=== PATIENT | male | born 1960 | race Caucasian/White ===

== ENCOUNTER 2019-09-03 09:03 | Outpatient (CLI) | payer OTHER, SELFPAY ==
[2019-09-03 09:12] LABS: Basophils Absolute Auto 0.03 K/mm3 (0.00-0.10); Basophils Percent Auto 0.5 % (0.0-1.0); Eosinophils Absolute Auto 0.25 K/mm3 (0.02-0.50); Eosinophils Percent Auto 4.4 % (1.0-6.0); Hematocrit 43.2 % (40.0-54.0); Hemoglobin 14.4 g/dL (14.0-18.0); Immature Granulocyte Absolute 0.02 K/mm3 (0.00-0.00); Immature Granulocyte Percent A 0.4 % (0.0-0.0); Lymphocytes Absolute Auto 1.53 K/mm3 (1.10-4.50); Mean Corpuscular HGB Conc 33.3 g/dL (32.0-36.0); Mean Corpuscular Hemoglobin 30.5 pg (27.0-31.0); Mean Corpuscular Volume 91.5 fL (78.0-102.0); Mean Platelet Volume 9.8 fl (8.7-11.0); Monocytes Absolute Auto 0.57 K/mm3 (0.10-0.90); Monocytes Percent Auto 10.1 % (2.0-11.0); Neutrophils Absolute Auto 3.3 K/mm3 (1.7-7.2); Neutrophils Percent Auto 57.6 % (50.0-70.0); Platelet Count Result 176 K/mm3 (150-420); Red Blood Count 4.72 M/mm3 (4.70-6.10); Red Cell Distribution Width 13.2 % (11.6-14.4); White Blood Count 5.7 K/mm3 (4.8-10.8)
[2019-09-03 10:21] LABS: Alanine Aminotransferase 40 U/L (16-63); Albumin Level 3.7 g/dL (3.4-5.0); Alkaline Phosphatase 90 U/L (46-116); Anion Gap 10.1 mmol/L (7-16); Aspartate Amino Transferase 22 U/L (15-37); Bilirubin,Total 0.4 mg/dL (0.00-1.00); Blood Urea Nitrogen 9 mg/dL (7-18); Calcium 8.9 mg/dL (8.5-10.1); Carbon Dioxide 29 mmol/L (21-32); Chloride 102 mmol/L (98-108); Estimated Glomerular Filt Rate > 60; Free T3 8.07 pg/mL (2.18-3.98); Free T4 Free Thyroxine 0.91 ng/dL (0.76-1.46); Glucose 91 mg/dL (70-99); Osmolality Calculated 280 mOsm/kg (285-295); Potassium 5.1 mmol/L (3.5-5.1); Sodium 136 mmol/L (136-145); Total Protein 7.2 g/dL (6.4-8.2)
[2019-09-03 10:46] LABS: Thyroid Stimulating Hormone < 0.01 uIU/mL (0.36-3.74)
== END 2019-09-03 09:04 | disposition home or self-care (01) ==
PROVIDERS: PCP Internal Medicine; Visit Provider Internal Medicine
DX: E05.80 Other thyrotoxicosis without thyrotoxic crisis or storm (principal); I10 Essential (primary) hypertension
CPT/HCPCS: 36415; 80053; 84439; 84443; 84481; 85025

== ENCOUNTER 2019-09-24 07:39 | Outpatient (CLI) | payer OTHER, SELFPAY ==
--- NOTE | ~2019-09-24 | XR_ITS ---
XR ankle RT min 3V DATE: 09/24/2019 07:58 INDICATION: Lateral ankle pain TECHNIQUE: 4 views COMPARISON: 07/28/2018 right ankle FINDINGS: Again noted is severe osteoarthritis at the tibiotalar joint, particularly severe laterally . Stable benign appearing mildly expansile lesion with sclerotic margins at the distal tibial shaft. Plantar calcaneal enthesopathy. 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 IMPRESSION: Severe osteoarthritis at the tibiotalar joint, most pronounced late rally Plantar calcaneal enthesopathy Stable benign lesion of distal tibial shaft
== END 2019-09-24 07:40 | disposition home or self-care (01) ==
PROVIDERS: PCP Internal Medicine; Visit Provider Orthopaedic Surgery
DX: M25.571 Pain in right ankle and joints of right foot (principal)
CPT/HCPCS: 73610

== ENCOUNTER 2019-10-12 07:38 | Outpatient (CLI) | payer OTHER, SELFPAY ==
--- NOTE | 2019-10-15 16:21 | WPDSIXMINUTE ---
Six Minute Walk Six Minute Walk: DOS: 10/12/2019 REQUESTING: Dr Petit REASON FOR TESTING: SIX MINUTE WALK This test was conducted per ATS guidelines. The Patient was tested walking on room air. Initial heart rate was 54 saturation was 96%. Blood pressure 129/76. The patient walked for 6 minutes without stopping, completed 800 ft/ 244 m. Final saturation was 94%. Heart rate at the end of the test was 64. Saturation ranged from 97% to 92%. IMPRESSION: This test shows no travis hypoxemia. There is no indication for supplemental oxygen with exertion. Distance walked is less than expected for age.
== END 2019-10-12 07:39 | disposition home or self-care (01) ==
LOC: ANHPFT 07:39
PROVIDERS: PCP Internal Medicine; Visit Provider Internal Medicine Critical Care Medicine
DX: J44.9 Chronic obstructive pulmonary disease, unspecified (principal); R06.02 Shortness of breath
CPT/HCPCS: 94618

== ENCOUNTER 2020-07-15 12:29 | Outpatient (CLI) | payer OTHER, SELFPAY ==
--- NOTE | ~2020-07-15 | CT_ITS ---
EXAMINATION: CT lung screening DATE: 07/15/2020 12:45 INDICATION: History of tobacco dependence TECHNIQUE: Computed tomography (CT) of the chest was performed without intravenous contrast. The dose -length product was 121.90 mGy-cm. Automated exposure control and iterative reconstruction technique were employed. COMPARISON: CT dated 07/28/2018 FINDINGS: Stable 3 mm lingular nodule. Heart size is normal. Calcified mediastinal and hilar lymph no pranav, consistent with chronic granulomatous disease. There are calcified granulomas of the liver and s pleen. No significant pleural or pericardial effusion. Mild emphysema. There are a few calcified gran ulomas in the lung parenchyma. Stable 3 mm nodule right upper lobe, image 35. There are a few additio nal scattered nodules measuring 3 mm or less. There is a new subsolid 7 mm left upper lobe nodule, be st seen on coronal image 189. No endobronchial lesions. Mild thoracic spondylosis with accentuated ky phosis. IMPRESSION: 1. Lung-RADS category 3: Probably benign. Further evaluation is recommended with noncontrast low-dose chest CT in 6 months. Reviewed, dictated and finalized at location A. IMPRESSION: 1. Lung-RADS category 3: Probably benign. Further evaluation is recommended wit h noncontrast low-dose chest CT in 6 months.
== END 2020-07-15 12:30 | disposition home or self-care (01) ==
LOC: CHSIMG 12:30
PROVIDERS: PCP Internal Medicine; Visit Provider Nurse Practitioner Family
DX: Z12.2 Encounter for screening for malignant neoplasm of respiratory organs (principal); Z87.891 Personal history of nicotine dependence
CPT/HCPCS: 71271

== ENCOUNTER 2020-07-16 11:23 | Outpatient (CLI) | payer OTHER, SELFPAY ==
--- NOTE | ~2020-07-16 | US_ITS ---
EXAMINATION: US venous doppler [facility] DATE: 07/16/2020 12:03 INDICATION: Bilateral lower limb swelling TECHNIQUE: Pablo scale images without and with compression and Doppler images of the bilateral lower e xtremity veins were obtained. COMPARISON: None FINDINGS: The right common femoral vein, profunda femoral vein, femoral vein, popliteal vein, peroneal trunk, p osterior tibial veins, and greater saphenous vein are patent. The left common femoral vein, profunda femoral vein, femoral vein, popliteal vein, peroneal trunk, po sterior tibial veins, and greater saphenous vein are patent. IMPRESSION: 1. Patent bilateral lower extremity veins. No evidence of deep venous thrombosis. Reviewed, dictated and finalized at location A. IMPRESSION: 1. Patent bilateral lower extremity veins. No evidence of deep venous thrombosi s.
== END 2020-07-16 11:24 | disposition home or self-care (01) ==
LOC: ANHIMG 11:24
PROVIDERS: PCP Internal Medicine; Visit Provider Internal Medicine Cardiovascular Disease
DX: R60.9 Edema, unspecified (principal)
CPT/HCPCS: 93970

== ENCOUNTER 2020-07-23 09:39 | Outpatient (CLI) | payer OTHER, SELFPAY ==
[2020-07-23 09:52] LABS: Basophils Absolute Auto 0.04 K/mm3 (0.00-0.10); Basophils Percent Auto 0.5 % (0.0-1.0); Eosinophils Absolute Auto 0.16 K/mm3 (0.02-0.50); Hematocrit 45.6 % (40.0-54.0); Hemoglobin 15.6 g/dL (14.0-18.0); Immature Granulocyte Absolute 0.03 K/mm3 (0.00-0.00); Immature Granulocyte Percent A 0.4 % (0.0-0.0); Lymphocytes Absolute Auto 1.37 K/mm3 (1.10-4.50); Lymphocytes Percent Auto 17.4 % (18.0-42.0); Mean Corpuscular HGB Conc 34.2 g/dL (32.0-36.0); Mean Corpuscular Hemoglobin 33.1 pg (27.0-31.0); Mean Corpuscular Volume 96.6 fL (78.0-102.0); Monocytes Percent Auto 8.9 % (2.0-11.0); Neutrophils Absolute Auto 5.6 K/mm3 (1.7-7.2); Neutrophils Percent Auto 70.8 % (50.0-70.0); Platelet Count Result 152 K/mm3 (150-420); Red Blood Count 4.72 M/mm3 (4.70-6.10); Red Cell Distribution Width 13.2 % (11.6-14.4); White Blood Count 7.9 K/mm3 (4.8-10.8)
[2020-07-23 09:55] LABS: Add Urine Microscopic? YES; Appearance Urine Clear (Clear); Bilirubin Urine Negative (Negative); Blood Urine Negative (Negative); Color Urine Yellow (Yellow); Glucose Urine UA Negative (Negative); Ketones Urine Trace (Negative); Leukocyte Esterase Ur Negative (Negative); Nitrate Urine Negative (Negative); Protein Urine Negative (Negative); Urobilinogen Urine >=8.0 mg/dL (0.2-1.0)
[2020-07-23 10:21] LABS: Bacteria Urine 1+ /hpf; Mucus Urine Few /lpf; RBC Urine 0-2 /hpf (0-2); Squamous Epithelial Cell Urine Rare /hpf (Few); WBC Urine 0-3 /hpf (0-3)
[2020-07-23 11:27] LABS: Alanine Aminotransferase 30 U/L (16-63); Albumin Level 4.1 g/dL (3.4-5.0); Alkaline Phosphatase 79 U/L (46-116); Anion Gap 8 mmol/L (8-16); Aspartate Amino Transferase 18 U/L (15-37); Bilirubin,Total 0.8 mg/dL (0.00-1.00); Blood Urea Nitrogen 11 mg/dL (7-18); CRP 6.3 mg/dL (0.0-0.9); Calcium 9.3 mg/dL (8.5-10.1); Carbon Dioxide 30 mmol/L (21-32); Chloride 98 mmol/L (98-108); Estimated Glomerular Filt Rate > 60; Free T3 3.04 pg/mL (2.18-3.98); Free T4 Free Thyroxine 0.39 ng/dL (0.76-1.46); Glucose 97 mg/dL (70-99); NT Pro B Type Natriuretic Pept 223 pg/mL (0-125); Osmolality Calculated 281 mOsm/kg (285-295); Potassium 4.6 mmol/L (3.5-5.1); Sodium 136 mmol/L (136-145); Thyroid Stimulating Hormone 8.61 uIU/mL (0.36-3.74); Total Protein 7.8 g/dL (6.4-8.2)
== END 2020-07-23 09:40 | disposition home or self-care (01) ==
LOC: CHSLAB 09:41
PROVIDERS: PCP Internal Medicine; Visit Provider Internal Medicine
DX: E05.90 Thyrotoxicosis, unspecified without thyrotoxic crisis or storm (principal); R60.9 Edema, unspecified
CPT/HCPCS: 36415; 80053; 81001; 83880; 84439; 84443; 84481; 85025; 86140

== ENCOUNTER 2021-01-05 12:58 | Outpatient (CLI) | payer OTHER, SELFPAY ==
--- NOTE | ~2021-01-05 | CT_ITS ---
EXAMINATION:CT diagnostic chest wo con DATE: 01/05/2021 13:15 INDICATION: Solitary pulmonary nodule. TECHNIQUE: Computed tomography (CT) of the chest was performed without intravenous contrast. Automate d exposure control and iterative reconstruction technique were employed. The dose-length product (DLP ) was 152.21 mGy-cm. COMPARISON: Chest CT 07/15/2020 FINDINGS: There is mild emphysema. Calcified pulmonary nodules and calcified hilar and mediastinal ly mph nodes are consistent with old granulomatous disease. There are a few pulmonary nodules measuring up to 3 mm. There is a 7 mm nodule in left upper lobe without change. No pleural effusion. There are mildly enlarged noncalcified mediastinal lymph nodes, likely reactive. The heart size is normal. Ther e are coronary artery calcifications. No pericardial effusion. Calcifications in the liver and spleen are consistent with old granulomatous disease. There is mild thoracic spondylosis. There is mild chr onic height loss of multiple vertebral bodies. IMPRESSION: 1. Lung-RADS category 2: Benign appearance or behavior. Continue annual screening with noncontrast lo w-dose chest CT in 12 months. Reviewed, dictated and finalized at location A. 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 Lung-RADS category 2: Benign appearance or behavior. Continue annual screeni ng with noncontrast low-dose chest CT in 12 months.
== END 2021-01-05 12:59 | disposition home or self-care (01) ==
PROVIDERS: PCP Internal Medicine; Visit Provider Nurse Practitioner Family
DX: R91.1 Solitary pulmonary nodule (principal)
CPT/HCPCS: 71250

== ENCOUNTER 2021-01-16 09:11 | Outpatient (CLI) | payer OTHER, SELFPAY ==
[2021-01-16 09:26] LABS: Basophils Absolute Auto 0.06 K/mm3 (0.00-0.10); Basophils Percent Auto 1.3 % (0.0-1.0); Eosinophils Absolute Auto 0.22 K/mm3 (0.02-0.50); Eosinophils Percent Auto 4.7 % (1.0-6.0); Hematocrit 45.8 % (40.0-54.0); Hemoglobin 15.7 g/dL (14.0-18.0); Immature Granulocyte Absolute 0.02 K/mm3 (0.00-0.00); Immature Granulocyte Percent A 0.4 % (0.0-0.0); Lymphocytes Absolute Auto 1.27 K/mm3 (1.10-4.50); Lymphocytes Percent Auto 27.1 % (18.0-42.0); Mean Corpuscular HGB Conc 34.3 g/dL (32.0-36.0); Mean Corpuscular Hemoglobin 34.5 pg (27.0-31.0); Mean Corpuscular Volume 100.7 fL (78.0-102.0); Mean Platelet Volume 9.6 fl (8.7-11.0); Monocytes Absolute Auto 0.45 K/mm3 (0.10-0.90); Monocytes Percent Auto 9.6 % (2.0-11.0); Neutrophils Absolute Auto 2.7 K/mm3 (1.7-7.2); Neutrophils Percent Auto 56.9 % (50.0-70.0); Platelet Count Result 171 K/mm3 (150-420); Red Blood Count 4.55 M/mm3 (4.70-6.10); Red Cell Distribution Width 13.2 % (11.6-14.4); White Blood Count 4.7 K/mm3 (4.8-10.8)
[2021-01-16 09:30] LABS: Add Urine Microscopic? NO; Appearance Urine Clear (Clear); Bilirubin Urine Negative (Negative); Blood Urine Negative (Negative); Color Urine Yellow (Yellow); Glucose Urine UA Negative (Negative); Ketones Urine Negative (Negative); Leukocyte Esterase Ur Negative (Negative); Nitrate Urine Negative (Negative); Protein Urine Negative (Negative); Specific Grav Ur >= 1.030 (1.010-1.020); Urobilinogen Urine 0.2 mg/dL (0.2-1.0)
[2021-01-16 10:20] LABS: Alanine Aminotransferase 47 U/L (16-63); Albumin Level 3.8 g/dL (3.4-5.0); Alkaline Phosphatase 67 U/L (46-116); Anion Gap 7 mmol/L (8-16); Aspartate Amino Transferase 18 U/L (15-37); Bilirubin,Total 0.3 mg/dL (0.00-1.00); Blood Urea Nitrogen 9 mg/dL (7-18); Carbon Dioxide 31 mmol/L (21-32); Chloride 99 mmol/L (98-108); Cholesterol 155 mg/dL (0-200); Estimated Glomerular Filt Rate > 60; Free T3 2.88 pg/mL (2.18-3.98); Free T4 Free Thyroxine 0.34 ng/dL (0.76-1.46); Glucose 72 mg/dL (70-99); HDL Direct 74 mg/dL (40-60); LDL Cholesterol Calculated 71 mg/dL (<130); Osmolality Calculated 281 mOsm/kg (285-295); Potassium 4.7 mmol/L (3.5-5.1); Prostate Specific Antigen 1.5 ng/mL (< OR = 4.0); Sodium 137 mmol/L (136-145); Thyroid Stimulating Hormone 5.44 uIU/mL (0.36-3.74); Total Protein 7.1 g/dL (6.4-8.2); Triglycerides 51 mg/dL (0-150)
== END 2021-01-16 09:12 | disposition home or self-care (01) ==
LOC: CHSLAB 09:16
PROVIDERS: Internal Medicine Cardiovascular Disease; Nurse Practitioner Family; PCP Internal Medicine; Visit Provider Internal Medicine
DX: E05.90 Thyrotoxicosis, unspecified without thyrotoxic crisis or storm (principal); I10 Essential (primary) hypertension; Z12.5 Encounter for screening for malignant neoplasm of prostate; Z00.00 Encounter for general adult medical examination without abnormal findings
CPT/HCPCS: 36415; 80053; 80061; 81003; 82104; 84153; 84439; 84443; 84481; 85025; G0103

== ENCOUNTER 2021-05-04 13:10 | Outpatient (CLI) | payer OTHER, SELFPAY ==
[2021-05-04 14:11] LABS: Free T4 Free Thyroxine 0.27 ng/dL (0.76-1.46); Thyroid Stimulating Hormone 10.68 uIU/mL (0.36-3.74)
== END 2021-05-04 13:11 | disposition home or self-care (01) ==
LOC: CHSLAB 13:11
PROVIDERS: PCP Internal Medicine; Visit Provider Internal Medicine
DX: E05.80 Other thyrotoxicosis without thyrotoxic crisis or storm (principal)
CPT/HCPCS: 36415; 84439; 84443; 84481

== ENCOUNTER 2021-07-18 07:49 | Outpatient (CLI) | payer OTHER, SELFPAY ==
--- NOTE | 2021-07-18 07:50 | ECG_ITS ---
Measurements Intervals [place] Rate: 44 P: 65 AK: 141 QRS: 61 QRSD: 92 T: 68 QT: 448 QTc: 386 Interpretive Statements SINUS BRADYCARDIA POSSIBLE LEFT ATRIAL ENLARGEMENT PEAKED T WAVES- CONSIDER HYPERKALEMIA OR ISCHEMIA ABNORMAL ECG Electronically Signed On 07-18-2021 16:08:15 CDT by Vamshi Harris D.O.
== END 2021-07-18 07:50 | disposition home or self-care (01) ==
LOC: CHSCARD 07:50
PROVIDERS: PCP Internal Medicine; Visit Provider Internal Medicine Cardiovascular Disease
DX: I48.92 Unspecified atrial flutter (principal)
CPT/HCPCS: 93005

== ENCOUNTER 2021-07-25 09:09 | Outpatient (CLI) | payer OTHER, SELFPAY ==
[2021-07-25 09:36] LABS: Anion Gap 9 mmol/L (8-16); Blood Urea Nitrogen 13 mg/dL (7-18); Calcium 8.9 mg/dL (8.5-10.1); Carbon Dioxide 28 mmol/L (21-32); Chloride 99 mmol/L (98-108); Estimated Glomerular Filt Rate > 60; Glucose 93 mg/dL (70-99); Osmolality Calculated 282 mOsm/kg (285-295); Potassium 4.3 mmol/L (3.5-5.1); Sodium 136 mmol/L (136-145)
[2021-07-27 09:30] LABS: Thyroid Stimulating Hormone 0.86 uIU/mL (0.36-3.74)
== END 2021-07-25 09:10 | disposition home or self-care (01) ==
LOC: CHSLAB 09:11
PROVIDERS: PCP Internal Medicine; Visit Provider Internal Medicine Cardiovascular Disease
DX: I48.92 Unspecified atrial flutter (principal); R53.83 Other fatigue
CPT/HCPCS: 36415; 80048; 84443

== ENCOUNTER 2021-07-28 10:29 | Emergency (ER) | payer OTHER, SELFPAY ==
[2021-07-28] VITALS (25 sets, daily range): BP systolic 116–134; BP diastolic 60–103; PULSE 52–64; RESP 9–35; TEMP 37.1; O2SAT 90–100
--- NOTE | ~2021-07-28 | XR_ITS ---
EXAMINATION: XR chest 2V 07/28/2021 11:06 INDICATION: Shortness of breath and chest pain PROCEDURE: 2 view chest COMPARISON: 10/27/2018 FINDINGS: The lungs are clear. The cardiomediastinal silhouette is within normal limits. There are no pleural effusions. There is no pneumothorax suspected. There are calcified mediastinal and hilar lymph nodes, consistent with chronic granulomatous disease. IMPRESSION: 1: NO ACUTE CARDIOPULMONARY DISEASE. Reviewed, dictated and finalized at location B.
--- NOTE | 2021-07-28 10:32 | ECG_ITS ---
Measurements Intervals [place] Rate: 61 P: 32 IA: 150 QRS: 73 QRSD: 86 T: 76 QT: 390 QTc: 394 Interpretive Statements SINUS RHYTHM RIGHT VENTRICULAR CONDUCTION DELAY EARLY REPOLARIZATION TALL T-WAVES, CONSIDER HYPERKALEMIA Electronically Signed On 07-28-2021 11:18:03 CDT by Shaw Hoover M.D.
[2021-07-28 10:52] LABS: Basophils Absolute Auto 0.1 K/mm3 (0.0-0.1); Basophils Percent Auto 0.6 % (0.2-1.2); Eosinophils Absolute Auto 0.2 K/mm3 (0-0.3); Hematocrit 44.9 % (42.0-52.0); Hemoglobin 14.9 g/dL (14.0-18.0); Immature Granulocyte Absolute 0.03 K/mm3 (0.00-0.031); Immature Granulocyte Percent A 0.3 % (0-0.5); Lymphocytes Absolute Auto 1.35 K/mm3 (0.9-3.2); Lymphocytes Percent Auto 14.5 % (18.3-44.2); Mean Corpuscular HGB Conc 33.2 g/dl (32-36); Mean Corpuscular Hemoglobin 33.6 pg (26-34); Mean Corpuscular Volume 101.4 fl (80-100); Mean Platelet Volume 9.7 fl (7.4-10.4); Monocytes Absolute Auto 1.1 K/mm3 (0.1-0.6); Monocytes Percent Auto 11.6 % (2.6-8.5); Neutrophils Absolute Auto 6.6 K/mm3 (1.3-6.7); Platelet Count Result 203 k/mm3 (150-375); Red Blood Count 4.43 M/mm3 (4.6-6.20); Red Cell Distribution Width 12.9 % (11.5-14.5); White Blood Count 9.3 K/mm3 (4.5-10.0)
[2021-07-28 11:01] LABS: Alanine Aminotransferase 13 U/L (6-50); Albumin Level 4.1 g/dL (3.5-5.1); Alkaline Phosphatase 74 U/L (38-126); Anion Gap 3 mmol/L (8-16); Aspartate Amino Transferase 17 U/L (17-59); Bilirubin,Total 0.5 mg/dL (0.2-1.3); Blood Urea Nitrogen 10 mg/dL (9-20); Carbon Dioxide 35 mmol/L (22-30); Chloride 96 mmol/L (98-107); Estimated Glomerular Filt Rate > 60; Glucose 122 mg/dL (65-110); Lipase 86 U/L (23-300); Potassium 4.5 mmol/L (3.4-5.0); Sodium 134 mmol/L (137-145)
[2021-07-28 11:13] LABS: Troponin I < 0.012 ng/mL (0.000-0.034)
--- NOTE | 2021-07-28 11:21 | ED.GENADULT ---
HPI - General Adult General Chief complaint: Chest Pain Stated complaint: cp Time Seen by Provider: 07/28/21 10:39 History of Present Illness HPI narrative: 61-year-old male with history of proximal small atrial fibrillation and COPD presenting the emergency department for evaluation of left-sided chest pain that is worsened with deep inspiration. Patient states over the last few weeks he has had worsening exertional shortness of breath. Patient has since had follow-up with cardiology. Patient states today that he did have acute onset of sharp left-sided chest pain. Sharp chest pain is worsened with inspiration. Pain is also worsened with movement. Patient denied any exertional chest pain. Patient is still a smoker. Patient states he does follow-up with Dr. Harris and Dr Petit. Related Data Home Medications Medication Instructions Recorded Confirmed aspirin 325 mg tablet,delayed 325 mg PO DAILY 01/05/19 07/13/21 release montelukast 10 mg tablet 10 mg PO DAILY 01/05/19 07/13/21 propylthiouracil 50 mg tablet 50 mg RECTAL BID 05/29/21 07/13/21 Allergies Allergy/AdvReac Type Severity Reaction Status Date / Time No Known Allergies Allergy Verified 07/28/21 11:10 Review of Systems Review of Systems: CONSTITUTIONAL: Denies fever, chills, or sweats. EYES: Denies visual changes, redness, or discharge. ENT: Denies rhinorrhea, congestion, sore throat, or otalgia. CARDIOVASCULAR: See HPI RESPIRATORY: Worsening wheezing and shortness of breath GASTROINTESTINAL: Denies abdominal pain, nausea, vomiting, or diarrhea. GENITOURINARY: Denies dysuria or hematuria. SKIN: Denies rash or itching. MUSCULOSKELETAL: Denies back pain, joint pain, or myalgia. NEUROLOGIC: Denies headache, numbness, or weakness. PSYCHIATRIC: Denies anxiety or depression. [facility] Past Medical History Medical History Arthritis of wrist, right, degenerative Bradycardia Chronic obstructive pulmonary disease Cough Dizziness KELLEY (dyspnea on exertion) Fatigue Hyperthyroidism Paroxysmal atrial flutter Pulmonary nodules Restless sleeper Rhinitis Seasonal allergies Severe tricuspid regurgitation Skin cancer SOB (shortness of breath) on exertion Swollen ankles Traumatic arthritis of right ankle Wheezing Surgical History Surgical History H/O hernia repair Family History Family History Father Family history of rheumatoid arthritis Family history of emphysema Family history of thoracic aortic aneurysm Mother Family history of osteoarthritis Family history of malignant neoplasm of ovary Social History Social History Smoking packs per day: 2 Smoking cigarettes per day: 40.0 Years smoked: 50 Smoking pack-years: 100.00 Smoking status: Current every day smoker Tobacco type: cigarettes Second hand tobacco smoke exposure: Yes Alcohol intake: current Drinks per week: 35 Alcohol use details: Frequent Exam Narrative: APPEARANCE: Well appearing, no pain, no distress, well-nourished. HEAD: normocephalic, atraumatic. EYES: PERRLA/EOMI, conjunctivae clear. NOSE: Normal no drainage THROAT: Pharynx clear, no exudate. NECK: Supple. No adenopathy, no masses. RESPIRATORY: Airway patent, expiratory wheeze CARDIOVASCULAR: Sinus bradycardia ABDOMINAL: Soft, nontender, nondistended, normal bowel sounds MUSCULOSKELETAL: Moves all extremities. Strength/ROM intact, No edema, No calf tenderness. NEURO: Alert. Cranial nerves II through XII intact. Good gait. Good coordination SKIN: Warm, dry. Normal Color Course Course Emergency Course: Patient had negative serial troponins. X-ray showed no acute cardiopulmonary normality. Patient's wheeze was improved with breathing treatments in the ED. Patient states he h
[2021-07-28] MEDS: IPRATROPIUM BR 0.02% INH SOLN 0.5 MG/2.5 ML VIAL 2 MG INHALATION (11:27)
[2021-07-28] MEDS: ALBUTEROL SULFATE NEB 2.5 MG/3 ML INH 5 MG INHALATION (11:27)
[2021-07-28] MEDS: predniSONE 40 MG, predniSONE 10 MG 50 MG PO (11:29)
[2021-07-28 11:33] LABS: INR 0.9; Partial Thromboplastin Time 29.9 SECONDS (22.3-36.8); Prothrombin Time 12.1 Seconds (11.1-14.7)
[2021-07-28 14:04] LABS: Troponin I < 0.012 ng/mL (0.000-0.034)
== END 2021-07-28 14:37 | disposition home or self-care (01) ==
PROVIDERS: Emergency Provider Emergency Medicine; PCP Internal Medicine
DX: R07.1 Chest pain on breathing (principal); I48.0 Paroxysmal atrial fibrillation; J44.9 Chronic obstructive pulmonary disease, unspecified; E05.90 Thyrotoxicosis, unspecified without thyrotoxic crisis or storm; Z85.828 Personal history of other malignant neoplasm of skin; I07.1 Rheumatic tricuspid insufficiency; F17.210 Nicotine dependence, cigarettes, uncomplicated; I45.9 Conduction disorder, unspecified; R94.31 Abnormal electrocardiogram [ECG] [EKG]
CPT/HCPCS: 36415; 71046; 80053; 83690; 84484; 85025; 85610; 85730; 93005; 94640; 99284; J7512

== ENCOUNTER 2021-09-23 09:28 | Outpatient (CLI) | payer OTHER, SELFPAY ==
[2021-09-23 09:42] LABS: Basophils Absolute Auto 0.08 K/mm3 (0.00-0.10); Eosinophils Absolute Auto 0.18 K/mm3 (0.02-0.50); Eosinophils Percent Auto 2.2 % (1.0-6.0); Hematocrit 47.7 % (40.0-54.0); Immature Granulocyte Absolute 0.02 K/mm3 (0.00-0.00); Immature Granulocyte Percent A 0.2 % (0.0-0.0); Lymphocytes Absolute Auto 1.35 K/mm3 (1.10-4.50); Lymphocytes Percent Auto 16.4 % (18.0-42.0); Mean Corpuscular HGB Conc 33.5 g/dL (32.0-36.0); Mean Corpuscular Hemoglobin 33.5 pg (27.0-31.0); Mean Corpuscular Volume 99.8 fL (78.0-102.0); Mean Platelet Volume 9.7 fl (8.7-11.0); Monocytes Absolute Auto 0.73 K/mm3 (0.10-0.90); Monocytes Percent Auto 8.9 % (2.0-11.0); Neutrophils Absolute Auto 5.9 K/mm3 (1.7-7.2); Neutrophils Percent Auto 71.3 % (50.0-70.0); Platelet Count Result 194 K/mm3 (150-420); Red Blood Count 4.78 M/mm3 (4.70-6.10); Red Cell Distribution Width 13.1 % (11.6-14.4); White Blood Count 8.2 K/mm3 (4.8-10.8)
--- NOTE | 2021-09-23 09:43 | ECG_ITS ---
Measurements Intervals [place] Rate: 50 P: 46 TX: 147 QRS: 60 QRSD: 90 T: 67 QT: 424 QTc: 389 Interpretive Statements SINUS BRADYCARDIA TALL T-WAVES, SUGGESTS HYPERKALEMIA ABNORMAL ECG COMPARED TO ECG 07/28/2021 10:38:20 HEART RATE HAS DECREASED Electronically Signed On 09-23-2021 12:16:25 CDT by Zain Emery M.D.
[2021-09-23 10:23] LABS: Alanine Aminotransferase 27 U/L (16-63); Albumin Level 3.9 g/dL (3.4-5.0); Alkaline Phosphatase 90 U/L (46-116); Anion Gap 10 mmol/L (8-16); Aspartate Amino Transferase 18 U/L (15-37); Bilirubin,Total 0.5 mg/dL (0.00-1.00); Blood Urea Nitrogen 13 mg/dL (7-18); Calcium 9.3 mg/dL (8.5-10.1); Carbon Dioxide 29 mmol/L (21-32); Chloride 96 mmol/L (98-108); Estimated Glomerular Filt Rate > 60; Free T4 Free Thyroxine 0.62 ng/dL (0.76-1.46); Glucose 109 mg/dL (70-99); Magnesium 1.9 mg/dL (1.8-2.4); NT Pro B Type Natriuretic Pept 100 pg/mL (0-125); Osmolality Calculated 281 mOsm/kg (285-295); Potassium 4.7 mmol/L (3.5-5.1); Sodium 135 mmol/L (136-145); Thyroid Stimulating Hormone 1.91 uIU/mL (0.36-3.74); Total Protein 7.7 g/dL (6.4-8.2)
== END 2021-09-23 09:29 | disposition home or self-care (01) ==
LOC: CHSLAB 09:31
PROVIDERS: PCP Internal Medicine; Visit Provider Nurse Practitioner Family
DX: E03.9 Hypothyroidism, unspecified (principal); I10 Essential (primary) hypertension; J44.9 Chronic obstructive pulmonary disease, unspecified; I50.9 Heart failure, unspecified; I48.92 Unspecified atrial flutter; M25.473 Effusion, unspecified ankle
CPT/HCPCS: 36415; 80053; 83735; 83880; 84439; 84443; 85025; 93005

== ENCOUNTER 2021-10-06 08:57 | Outpatient (CLI) | payer OTHER, SELFPAY ==
--- NOTE | ~2021-10-06 | XR_ITS ---
EXAMINATION: XR ankle LT min 3V DATE: 10/06/2021 09:38 INDICATION: Left ankle pain TECHNIQUE: Anteroposterior, lateral, mortise, and additional oblique view of the ankle were obtained. COMPARISON: None. FINDINGS: Bone alignment is normal. There is mild osteoarthritis of the ankle. No fracture is identif ied. The soft tissues are unremarkable. There is a plantar calcaneal enthesophyte. IMPRESSION: 1. Mild osteoarthritis of the left ankle. Reviewed, dictated and finalized at location A.
--- NOTE | ~2021-10-06 | XR_ITS ---
EXAMINATION: XR ankle RT min 3V INDICATION: Right ankle TECHNIQUE: Four views of the right ankle are obtained. COMPARISON: 09/24/2019 FINDINGS: There is advanced osteoarthritis of the ankle. No fracture is identified. There is a stable , chronic nonaggressive lytic lesion with sclerotic margin in the lateral metadiaphysis of the distal tibia with bone expansion, likely benign given the lack of interval change. A plantar calcaneal enth esophyte is noted. There is mild soft tissue swelling of ankle. IMPRESSION: 1. Advanced osteoarthritis of the right ankle and soft tissue swelling without acute osseous abnormal ity or significant interval change. Reviewed, dictated and finalized at location A. IMPRESSION: 1. Advanced osteoarthritis of the right ankle and soft tissue swelling without acute osseous abnormality or significant interval change.
== END 2021-10-06 08:58 | disposition home or self-care (01) ==
LOC: CHSIMG 08:59
PROVIDERS: PCP Internal Medicine; Visit Provider Internal Medicine
DX: M25.572 Pain in left ankle and joints of left foot (principal); M25.571 Pain in right ankle and joints of right foot; M25.472 Effusion, left ankle; M25.471 Effusion, right ankle; M19.072 Primary osteoarthritis, left ankle and foot; M19.071 Primary osteoarthritis, right ankle and foot
CPT/HCPCS: 73610

== ENCOUNTER 2022-04-24 08:53 | Outpatient (CLI) | payer OTHER, SELFPAY ==
--- NOTE | ~2022-04-24 | XR_ITS ---
EXAMINATION: XR chest 2V DATE: 04/24/2022 09:12 INDICATION: Shortness of breath TECHNIQUE: PA and lateral views of the chest are obtained. COMPARISON: 07/28/2021 FINDINGS: The lungs are free of acute opacities. No pleural effusion or pneumothorax. The cardiomedia stinal silhouette is normal. There is mild thoracic spondylosis. Calcified pulmonary nodules and calc ified bilateral hilar and right paratracheal lymph nodes are consistent with old granulomatous diseas e. IMPRESSION: 1. No acute cardiopulmonary abnormality. Reviewed, dictated and finalized at location F. 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
[2022-04-24 09:08] LABS: Basophils Percent Auto 1.1 % (0.0-1.0); Eosinophils Absolute Auto 0.26 K/mm3 (0.02-0.50); Eosinophils Percent Auto 2.9 % (1.0-6.0); Hemoglobin 14.9 g/dL (14.0-18.0); Immature Granulocyte Absolute 0.09 K/mm3 (0.00-0.00); Lymphocytes Absolute Auto 1.46 K/mm3 (1.10-4.50); Lymphocytes Percent Auto 16.2 % (18.0-42.0); Mean Corpuscular HGB Conc 32.4 g/dL (32.0-36.0); Mean Corpuscular Hemoglobin 32.5 pg (27.0-31.0); Mean Corpuscular Volume 100.2 fL (78.0-102.0); Monocytes Absolute Auto 0.78 K/mm3 (0.10-0.90); Monocytes Percent Auto 8.7 % (2.0-11.0); Neutrophils Absolute Auto 6.3 K/mm3 (1.7-7.2); Neutrophils Percent Auto 70.1 % (50.0-70.0); Platelet Count Result 312 K/mm3 (150-420); Red Blood Count 4.59 M/mm3 (4.70-6.10); Red Cell Distribution Width 12.6 % (11.6-14.4)
[2022-04-24 10:01] LABS: Alanine Aminotransferase 22 U/L (16-63); Albumin Level 3.2 g/dL (3.4-5.0); Alkaline Phosphatase 83 U/L (46-116); Anion Gap 8 mmol/L (8-16); Aspartate Amino Transferase 17 U/L (15-37); Bilirubin,Total 0.2 mg/dL (0.00-1.00); Blood Urea Nitrogen 13 mg/dL (7-18); Calcium 9.3 mg/dL (8.5-10.1); Carbon Dioxide 34 mmol/L (21-32); Chloride 96 mmol/L (98-108); Estimated Glomerular Filt Rate > 60; Free T3 3.14 pg/mL (2.18-3.98); Free T4 Free Thyroxine 0.74 ng/dL (0.76-1.46); Glucose 84 mg/dL (70-99); Osmolality Calculated 285 mOsm/kg (285-295); Potassium 4.7 mmol/L (3.5-5.1); Sodium 138 mmol/L (136-145); Thyroid Stimulating Hormone 1.16 uIU/mL (0.36-3.74); Total Protein 7.6 g/dL (6.4-8.2)
[2022-04-27 11:27] LABS: ANA Cascade Screen Negative (Negative)
== END 2022-04-24 08:54 | disposition home or self-care (01) ==
LOC: CHSIMG 08:54
PROVIDERS: PCP Internal Medicine; Visit Provider Nurse Practitioner Family
DX: M25.50 Pain in unspecified joint (principal); J44.9 Chronic obstructive pulmonary disease, unspecified; R06.02 Shortness of breath; E03.9 Hypothyroidism, unspecified
CPT/HCPCS: 36415; 71046; 80053; 84439; 84443; 84481; 85025; 86038

== ENCOUNTER 2022-04-29 10:32 | Outpatient (CLI) | payer OTHER, SELFPAY ==
--- NOTE | ~2022-04-29 | CT_ITS ---
CT Scan of the Chest without Contrast: Clinical Indication: Lung cancer screening, smoking history Technique: Contiguous sections were acquired throughout the chest without intravenous contrast. Dose reduction technique was used on this scan by utilizing automated exposure control and iterative recon struction technique. The dose-length product (DLP) was 139.02 mGy-cm. COMPARISON: 01/05/2021 and 07/15/2020 Findings: There is no evidence of any significant mediastinal, hilar or axillary lymphadenopathy. Calcified med iastinal and bilateral hilar lymph nodes are present. Coronary artery calcium patient are present. There is no evidence of pleural or pericardial effusion. 1.2 cm irregular left apical pulmonary nodule is significantly increased in size from prior exam (axi al image 23). There are additional small somewhat branching opacities in the peripheral aspect of the right upper and left upper lobes. Several calcified granulomas are noted. Images through the upper abdomen reveal calcified hepatic and splenic granulomas. Impression: 1.2 cm irregular left apical pulmonary nodule, significantly increased in size from prior exam. This is consistent with a lung RADS 4B lesion. Additional diagnostic testing and/or tissue sampling is rec ommended. Several additional somewhat branching opacities in the peripheral upper lobes. Findings a small impac claudia airways or small airways infectious process rather than neoplastic lesions. Short-term follow-up exam should be considered to reassess, in 1-3 months. Evidence of No disc disease. Reviewed, dictated and finalized at [facility]. 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 This is consistent with a lung RADS 4B lesion. Additional diag nostic testing and/or tissue sampling is recommended. Several additional somewhat branching opacities in the peripheral upper lobes. Findings a small impacted airways or small airways infectious process rather th an neoplastic lesions. Short-term follow-up exam should be considered to reasse ss, in 1-3 months. Evidence of No disc disease.
[2022-04-29 10:35] VITALS: PULSE 64; O2SAT 95
[2022-04-29 10:45] VITALS: PULSE 62; O2SAT 92
--- NOTE | 2022-04-29 12:54 | HOMEO2EVAL ---
Evaluation was performed at [facility] [place] Home Oxygen Evaluation RC: Home Oxygen (O2) Evaluation Start: 04/29/22 12:49 Freq: Status: Active Protocol: RPE Activity Type Activity Date Activity User E-sign Co-sign Detail Recorded Client Recorded Date Recorded By Document 04/29/22 10:35 [id number] 04/29/22 12:54 Document 04/29/22 10:45 [id number] 04/29/22 12:54 04/29/22 04/29/22 10:35 10:45 Home O2 Evaluation [Oxygen] -Test Phase Resting Exercise -Oxygen Delivery Room Air [Pulse Oximetry] -Pulse Oximetry (90-100 %) 95 92 [Pulse Rate] -Pulse Rate (60-100 beats/min) 64 62 [Evaluation] -Activity Tolerance Good Good -Rating of Perceived Dyspnea (PD) +1 Mild, +1 Mild, Noticeable to Noticeable to the Participant the Participant but Not to an but Not to an Observer Observer -Rate of Perceived Exertion (PE) 7 7 Query Text:Click the Protocol Button to View the RPE Scale [Exercise] -Ambulation Distance (feet) 295 -Ambulation Distance (meters) 89.91 [Comments] -Home Oxygen Evaluation Comments will begin walk ended walk on on room air @ room air @ 92% 95% heart rate 64, no difficulty noted. Tolerated well. [Charges] -Treatment Charges O2 Evaluation - Outpatient
== END 2022-04-29 10:33 | disposition home or self-care (01) ==
LOC: CHSCARD 10:35
PROVIDERS: PCP Internal Medicine; Visit Provider Nurse Practitioner Family
DX: R06.02 Shortness of breath (principal); Z87.891 Personal history of nicotine dependence; J44.9 Chronic obstructive pulmonary disease, unspecified; R91.1 Solitary pulmonary nodule
CPT/HCPCS: 71271; 94618

== ENCOUNTER 2022-05-13 09:12 | Outpatient (CLI) | payer OTHER, SELFPAY ==
--- NOTE | ~2022-05-13 | PE_ITS ---
EXAMINATION: PET skull to mid thigh DATE: 05/13/2022 11:10 INDICATION: Solitary pulmonary nodule TECHNIQUE: Blood glucose level was 106 mg/dL. 10.984 mCi of 18-fluorodeoxyglucose (18-FDG) was admini stered i.v. Low dose computed tomography (CT) images were acquired from the base of the brain to the proximal thighs for attenuation correction and anatomic localization. Positron emission tomography (P ET) images were acquired in the same distribution beginning 62 minutes after injection. Images includ ing fused PET/CT images were reconstructed in axial, coronal, and sagittal planes. Automated exposure control technique was employed. The dose-length product was 571.69mGy-cm. COMPARISON: Chest CT dated 04/29/2022 FINDINGS: Head/neck: There is symmetric increased activity in the oral cavity, parotid glands, submandibular glands, dina ngeal muscles and ocular muscles without CT correlate, likely physiologic. No pathologically enlarged cervical lymphadenopathy or suspicious foci of increased FDG uptake in the visualized head or neck. Chest: Moderate increased FDG uptake with maximal SUV of 9.1 associated with the enlarging 1.6 x 1.2 spicula claudia left apical nodule. Calcified right upper lobe nodule and calcified mediastinal and bilateral hil ar lymph nodes consistent with old granulomatous disease. Mild FDG activity with maximal SUV of 2.8/w ith a new small region of consolidation and groundglass opacity in the left lower lobe at the postero lateral costophrenic angle which could represent pneumonia or atelectasis. No other suspicious pulmon michelle nodules or pleural effusion. Heart size is normal. Atherosclerotic coronary artery calcific locat ion. No pericardial effusion. Ectatic ascending thoracic aorta measuring up to 4.1 cm in maximal diam eter. No pathologically enlarged or FDG avid thoracic lymphadenopathy. Diffuse mild uptake in the rig ht teres minor muscle and relatively symmetric throughout the bilateral pectoralis minor, sternocleid omastoid and levator scapulae muscles, all without radiologic correlate and likely physiologic. Mild likely degenerative uptake at the left sacroiliac joint with associated osteoarthritis. No other susp icious lytic, blastic or FDG avid bone lesions. Abdomen/pelvis/proximal thighs: Physiologic renal accumulation and excretion of FDG activity in the kidneys, bladder and along portio ns of ureters. There are scattered hepatic and splenic calcific lesions consistent with old granuloma tous disease. Normal degree and heterogenous pattern of increased uptake throughout the liver without radiologic correlate or dominant FDG avid lesion. The gallbladder, pancreas and bilateral adrenal gl ands are normal. Mild uptake scattered throughout the bowels without radiologic correlate, also likel y physiologic. Normal appendix. No other abnormal foci of increased FDG uptake or pathologically enla rged lymphadenopathy in the abdomen, pelvis or proximal thighs. Severe lumbosacral spondylosis. No marcelo spicious lytic, blastic or FDG avid bone lesions. IMPRESSION: 1. Increased uptake associated with enlarging 1.6 x 1.2 cm left upper lobe nodule concerning for prim michelle bronchogenic carcinoma. Recommend CT-guided percutaneous biopsy. 2. No lesion suspicious for metastatic disease. 3. New small region of consolidation in the lateral basilar left lower lobe which could represent ate lectasis or pneumonia. Reviewed, dictated and finalized at location A. IMPRESSION: 1. Increased uptake associated with enlarging 1.6 x 1.2 cm left upper lobe nodu le concerning for primary bronchogenic carcinoma. Recommend CT-guided percutane ous biopsy. 2. No lesion suspicious for metastatic disease. 3. New small region of consolidation in the lateral basilar left lower lobe whi
[2022-05-13 09:30] LABS: Glucose Point of Care 106 mg/dl (65-105)
== END 2022-05-13 09:13 | disposition home or self-care (01) ==
PROVIDERS: PCP Internal Medicine; Visit Provider Nurse Practitioner Family
DX: R91.1 Solitary pulmonary nodule (principal); J18.1 Lobar pneumonia, unspecified organism
CPT/HCPCS: 78815; A9552

== ENCOUNTER 2022-05-25 01:36 | Outpatient (CLI) | payer OTHER, SELFPAY ==
[2022-05-18 09:22] VITALS: BMI 24.7
--- NOTE | 2022-05-18 09:22 | PC.NURSE ---
Pre Radiology instructions Report to the outpatient hospital for special care AT 0900 on date 05/25/22. Procedure Time: 1100. YOU MAY BE MONITORED AT HOSPITAL FOR UP TO 4 HOURS AFTER YOUR PROCEDURE. 1-2 visitors will be allowed to accompany the patient into the hospital. ?The visitor will be instructed to remain with patient at all times or MAY BE ASKED TO leave the building due to restrictions.? We will allow the visitor to come back to the postoperative area when patient is ready.? NO children visitors allowed at this time. You and your visitor will be asked to self-screen and do not enter if you have any COVID symptoms. A mask is OPTIONAL within the hospital. Patients are to have no food or drink 8 hours prior to procedure time Driving will be restricted after the procedure, you must have a person to drive you home. Labs will be drawn in preop area and once reviewed, you will be taken to radiology area for procedure. When the procedure is completed, you will be taken to outpatient where you will be monitored for several hours. You may have one visitor in this area. Other than holding anti-coagulants, patient may take other medication(s) as scheduled. Prior to your appointment date patients are instructed to hold anti-coagulants after discussing with ordering provider to stop. If unable to discontinue anti-coagulants please notify radiologist. ? No aspirin or warfarin (Coumadin) for 7 days prior to the procedure. ? No clopidogrel (Plavix), ticagrelor (Brilinta), prasugrel (Effient) or dabigatran (Pradaxa) for 5 days prior to the procedure. ? No rivaroxaban (Xarelto), apixaban (Eliquis), dipyridamole (Aggrenox or Persantine) or cilostazol (Pletal) for 2 days prior to the procedure. Medications to discontinue per physician: ASPIRIN Date to take last dose: 7 DAYS PRIOR Please leave all valuables, including medications, at home the day of procedure. The hospital will not accept responsibility for valuables. Wear comfortable, loose fitting clothing.? Follow any additional instructions given to you from ordering provider. Telephone instructions given to TATA LYNCH and asked if any additional questions and then verbalized understanding. Patient advised to call scheduling provider office or registration scheduling [phone] if any additional questions.
[2022-05-25] VITALS (9 sets, daily range): BP systolic 115–126; BP diastolic 56–73; PULSE 48–68; RESP 16–20; TEMP 36.5; O2SAT 95–100
--- NOTE | ~2022-05-25 | XR_ITS ---
EXAMINATION: XR chest 1V DATE: 05/25/2022 10:52 INDICATION: Left lung nodule status post percutaneous biopsy. TECHNIQUE: A single frontal view of the chest was obtained. COMPARISON: Chest 2 views 04/24/2022 FINDINGS: Calcified pulmonary nodules and calcified hilar and mediastinal lymph nodes are consistent with old granulomatous disease. There is a nodule in left upper lobe. No pleural effusion or pneumoth orax. The heart size is normal. IMPRESSION: 1. Nodule in left lung upper lobe suspicious for primary bronchogenic carcinoma. Reviewed, dictated and finalized at location A. IMPRESSION: 1. Nodule in left lung upper lobe suspicious for primary bronchogenic carcinoma .
--- NOTE | ~2022-05-25 | CT_ITS ---
EXAMINATION: CT biopsy lung w/imaging DATE: 05/25/2022 10:48 INDICATION: Left lung upper lobe nodule. TECHNIQUE: The procedure including the risks, benefits, and alternatives and possibility of chest tub e placement were discussed with the patient. Risks discussed included infection, hemorrhage, approxim ately 1/3 risk of pneumothorax, approximately 1/10 risk of pneumothorax severe enough to warrant ches t tube placement, and rarely . The patient understood the risks and agreed to proceed. The patie nt was placed prone. The skin overlying the left chest was prepped and draped in sterile fashion. A nesthetic was administered with 1% lidocaine subcutaneously. A 19 gauge outer needle was advanced un roderick CT guidance to the lesion of interest. A 20 gauge core biopsy needle was then used to obtain 3 co re biopsy specimens. The needle was removed and the entry site was cleaned and dressed. The mA was ad justed according to patient size. Iterative reconstruction technique was employed. The dose-length pr oduct was 158.74 mGy-cm. There were no immediate complications. FINDINGS: CT images demonstrate the outer needle tip adjacent to a 14 mm nodule in left upper lobe. IMPRESSION: 1. CT-guided core needle biopsy of a 14 mm nodule in left lung upper lobe. Reviewed, dictated and finalized at location A.
--- NOTE | ~2022-05-25 | XR_ITS ---
EXAMINATION: XR chest 1V portable DATE: 05/25/2022 11:49 INDICATION: Left lung upper lobe nodule status post percutaneous biopsy. TECHNIQUE: A single frontal view of the chest was obtained. COMPARISON: Chest single view at 10:51 AM FINDINGS: There is a nodule in left lung upper lobe. Calcified pulmonary nodules and calcified hilar and mediastinal lymph nodes are consistent with old granulomatous disease. No pleural effusion or pne umothorax. The heart size is normal. IMPRESSION: 1. Nodule in left lung upper lobe suspicious for primary bronchogenic carcinoma. Reviewed, dictated and finalized at location A. IMPRESSION: 1. Nodule in left lung upper lobe suspicious for primary bronchogenic carcinoma .
--- NOTE | ~2022-05-25 | XR_ITS ---
EXAMINATION: XR chest 1V portable DATE: 05/25/2022 14:00 INDICATION: Left pleural effusion status post percutaneous biopsy. TECHNIQUE: A single frontal view of the chest was obtained. COMPARISON: Chest single view at 11:43 AM FINDINGS: There is a small left pneumothorax. There is a nodule in left upper lobe. Calcified pulmona ry nodules and calcified hilar and mediastinal lymph nodes are consistent with old granulomatous dise ase. No pleural effusion. The heart size is normal. IMPRESSION: 1. Small left pneumothorax. 2. Nodule in left lung upper lobe suspicious for primary bronchogenic carcinoma. Reviewed, dictated and finalized at location A. IMPRESSION: 1. Small left pneumothorax. 2. Nodule in left lung upper lobe suspicious for primary bronchogenic carcinoma .
[2022-05-25 09:12] LABS: Prothrombin Time 12.4 Seconds (11.1-14.7)
--- NOTE | 2022-05-25 11:47 | SUR.PHASEII ---
1140 PATIENT REPORTS SHARP PAIN TO MID-STERNUM WITH INHALATION. DR. PAN NOTIFIED. PORT CXR IN PROGRESS NOW.
--- NOTE | 2022-05-25 12:10 | SUR.PHASEII ---
1145 DR. PAN STATED PATIENT MAY SIT UP FOR COMFORT; PATIENT STATES HIS PAIN IS MINIMAL WHEN SITTING UP. DR. PAN STATES PATIENT MAY HAVE ICE CHIPS; PATIENT DECLINED THEM.
--- NOTE | 2022-05-25 14:33 | SUR.PHASEII ---
1400 PORTABLE CXR DONE.
--- NOTE | 2022-05-25 14:33 | SUR.PHASEII ---
7803 DR. PAN SPOKE WITH PATIENT. OKAY'D PATIENT TO GO HOME.
== END 2022-05-25 14:20 | disposition home or self-care (01) ==
PROVIDERS: PCP Internal Medicine; Referring Provider Nurse Practitioner Family; Visit Provider Radiology Diagnostic Radiology
PROC: BB24ZZZ Computerized Tomography (CT Scan) of Bilateral Lungs (ICD-10-PCS; CPT 32408; principal; 2022-05-25 11:00)
DX: C34.92 Malignant neoplasm of unspecified part of left bronchus or lung (principal); J93.9 Pneumothorax, unspecified
CPT/HCPCS: 32408; 36415; 71045; 85610; 88305; 88342

== ENCOUNTER 2022-05-28 14:05 | Outpatient (CLI) | payer OTHER, SELFPAY ==
--- NOTE | 2022-05-28 14:10 | ECHO_ITS ---
Patient Info Name: Nathaniel Bowen Age: 61 years : 1960 Gender: Male Ht: 74 in Wt: 195 lbs BSA: 2.15 m2 HR: 59 bpm BP: 112 / 76 mmHg Technical Quality: Good Exam Date: 05/28/2022 2:18 PM Exam Location: [facility], [place] Patient Status: Outpatient Admit Date: 05/28/2022 Staff Ordering Physician: Vamshi Harris DO Trouble Dispatcher: Morgan Brooke, JUAN JOSÉ, RT Attending Provider: Vamshi Harris DO Referring Physician: Steven MURCIA; Exam Type: CA echo doppler color flow Study Info Indications R06.00 - Dyspnea, unspecified Complete two-dimensional, color flow and Doppler transthoracic echocardiogram is performed. Strain analysis performed. Summary 1. Complete two-dimensional, color flow and Doppler transthoracic echocardiogram is performed. 2. Left ventricular chamber dimension is normal. 3. Left ventricular systolic function is normal, estimated at 60-65%. 4. There is mild concentric increased left ventricular wall thickness. 5. The left ventricular diastolic function is normal. 6. E/e' 8 is minimally elevated. 7. There is mild tricuspid valve regurgitation. 8. Severe pulmonary hypertension, estimated pulmonary arterial systolic pressure is 62 mmHg. 9. The aortic root size at the sinus of Valsalva is borderline dilated at 4.0 cm. Left Ventricle E/e' 8 is minimally elevated. Left ventricular chamber dimension is normal. Left ventricular systolic function is normal, estimated at 60-65%. There is mild concentric increased left ventricular wall thickness. The left ventricular diastolic function is normal. Right Ventricle Right ventricular chamber dimension is normal. Right ventricular systolic function is normal. Left Atria Left atrial chamber dimension is normal. Right Atria Right atrial chamber dimension is normal. Aortic Valve The aortic valve is trileaflet. There is no aortic valve stenosis. There is no aortic valve regurgitation. Pulmonic Valve There is no pulmonic regurgitation. Mitral Valve There is no mitral valve stenosis. There is no mitral valve regurgitation. Tricuspid Valve There is mild tricuspid valve regurgitation. Severe pulmonary hypertension, estimated pulmonary arterial systolic pressure is 62 mmHg. Pericardium/Pleural There is no pericardial effusion. Inferior Vena Cava Normal inferior vena cava with >50% collapse upon inspiration consistent with normal right atrial pressure, 5 mmHg. Aorta The aortic root size at the sinus of Valsalva is borderline dilated at 4.0 cm. Left Ventricular Outflow Tract Name Value Normal LVOT 2D LVOT Diameter 2.0 cm LVOT Doppler LVOT Peak Velocity 101 cm/s LVOT Peak Gradient 4 mmHg LVOT Mean Gradient 2 mmHg LVOT VTI 24 cm LVOT VTI/AV VTI Ratio 0.7 LVOT Stroke Volume 78 ml Mitral Valve Name Value Normal
== END 2022-05-28 14:06 | disposition home or self-care (01) ==
LOC: CHSIMG 14:06
PROVIDERS: PCP Internal Medicine; Visit Provider Internal Medicine Cardiovascular Disease
DX: R06.09 Other forms of dyspnea (principal); I27.20 Pulmonary hypertension, unspecified; I07.1 Rheumatic tricuspid insufficiency
CPT/HCPCS: 93306

== ENCOUNTER 2022-06-09 08:24 | Outpatient (CLI) | payer OTHER, SELFPAY ==
--- NOTE | 2022-07-03 20:18 | WPDSLEEPSTUD ---
Sleep Study Date of Study: 06/09/22 Ordering Provider: Mansoor Calix APRN Interpreting Physician: Nicky Payan DO Sleep Study Type: Polysomnogram Height: 1.88 m Weight: 87.09 kg Body Mass Index: 24.6 Neck Circumference (inches): 16.5 [place]: 7 Reason for Sleep Study Multiple nighttime awakenings, nocturia Sleep History The patient is a 62-year-old male with hypertension, bradycardia, COPD dyspnea, hyperthyroidism, paroxysmal atrial flutter seasonal allergies severe tricuspid regurgitation and tobacco use a sleep study ordered by the Pulmonary group for evaluation of nocturnal hypoxemia. the patient occasionally awakens from sleep short of breath. He occasionally awakens at with heartburn, belching or cough. He occasionally snores. He occasionally has trouble sleeping when he has a cold. He rarely wakes up gasping for air throughout night. He occasionally has breathing problems observed by himself or others. He denies sweating excessively at night. He occasionally has heart palpitations irregular heartbeats during the night. He frequently falls asleep during the day but never while driving. He denies sleep paralysis, cataplexy and hypnagogic / hypnopompic hallucinations. He constantly has trouble at school or work due to shortness of breath. Denies feeling afraid of going to sleep. He occasionally has nightmares and occasionally remembers his dreams. He rarely has thoughts racing through his mind. He frequently feels sad or depressed and constantly has anxiety. He rarely has muscular tension. He denies noticing parts of his body jerk. He denies kicking during the night. He constantly experiences crawling and aching feelings in his legs but never has leg pain during the night. He denies grinding his teeth during sleep and awakening morning jaw pain. He is occasionally bothered by pain during the day and occasionally awakened by pain during the night. He denies waking feeling stiff morning. He occasionally wakes up with sore or achy muscles. He denies waking up with pain in the neck, spine or other joints. He goes to bed between 8-9 p.m. on both weekdays and weekends. He can fall asleep immediately or it can take several hours. He wakes up 3 times throughout the night to urinate, smoke a cigarette and let his dog out. He is able to fall back asleep within 20 minutes or it can take several hours. He wakes up at 5:00 a.m. both weekdays and weekends. He typically gets 5-6 hours of sleep per night. He does not stay in bed after waking up in the morning. He currently lives alone. He does not consume any caffeinated beverages within 2 hours of bedtime. He does not engage in physical exercise before bedtime. He will watch television before falling asleep. He will take naps in the afternoon or the evening and they are refreshing. He does consume caffeinated beverages throughout the day. He currently smokes 1 pack of cigarettes per day for the past 48 years. He does consume alcoholic beverages uses recreational drugs. FORMERLY [facility], [facility] Past Medical History Medical History Arthritis of wrist, right, degenerative Bradycardia Chronic obstructive pulmonary disease Cough Dizziness KELLEY (dyspnea on exertion) Fatigue Hyperthyroidism Paroxysmal atrial flutter Pulmonary nodules Restless sleeper Rhinitis Seasonal allergies Severe tricuspid regurgitation Skin cancer SOB (shortness of breath) on exertion Swollen ankles Traumatic arthritis of right ankle Wheezing Surgical History Surgical History H/O hernia repair Family History Family History Father , from aortic aneurysm Family history of rheumatoid arthritis Family history of emphysema Family history of thoracic aortic aneurysm Osteoarthritis COPD (chronic obstructive pulmonary disease
[2022-07-03 20:31] VITALS: BMI 24.6
== END 2022-06-10 06:10 | disposition home or self-care (01) ==
LOC: ANHCSM 08:24
PROVIDERS: PCP Internal Medicine; Visit Provider Nurse Practitioner Family
DX: G47.34 Idiopathic sleep related nonobstructive alveolar hypoventilation (principal)
CPT/HCPCS: 95810

== ENCOUNTER 2022-06-23 14:12 | Outpatient (CLI) | payer OTHER, SELFPAY ==
[2022-06-23 14:30] VITALS: PULSE 54; O2SAT 96
[2022-06-23 14:35] VITALS: PULSE 68; O2SAT 87
[2022-06-23 14:40] VITALS: PULSE 67; O2SAT 88
[2022-06-23 14:45] VITALS: PULSE 69; O2SAT 90
--- NOTE | 2022-06-23 14:58 | HOMEO2EVAL ---
Evaluation was performed at [facility] Home Oxygen Evaluation RC: Home Oxygen (O2) Evaluation Start: 06/23/22 14:55 Freq: Status: Active Protocol: RPE Activity Type Activity Date Activity User E-sign Co-sign Detail Recorded Client Recorded Date Recorded By Document 06/23/22 14:30 DJO [email or web address] 06/23/22 14:58 DJO Document 06/23/22 14:35 [email or web address] [email or web address] 06/23/22 14:58 DJO Document 06/23/22 14:40 DJO [email or web address] 06/23/22 14:58 DJO Document 06/23/22 14:45 [email or web address] [email or web address] 06/23/22 14:58 DJO Document 06/23/22 14:57 [email or web address] [email or web address] 06/23/22 14:58 DJO 06/23/22 06/23/22 06/23/22 14:30 14:35 14:40 Home O2 Evaluation [Oxygen] -Test Phase Resting Exercise Exercise -Oxygen Delivery Room Air Room Air Nasal Cannula -Oxygen Flow Rate (L/min) 1 [Pulse Oximetry] -Pulse Oximetry (90-100 %) 96 87 L 88 L [Pulse Rate] -Pulse Rate (60-100 beats/min) 54 L 68 67 [Evaluation] -Activity Tolerance [Exercise] -Ambulation Distance (feet) -Ambulation Distance (meters) [Charges] -Treatment Charges O2 Evaluation - Outpatient 06/23/22 06/23/22 14:45 14:57 Home O2 Evaluation [Oxygen] -Test Phase Exercise Resting -Oxygen Delivery Nasal Cannula Room Air -Oxygen Flow Rate (L/min) 2 [Pulse Oximetry] -Pulse Oximetry (90-100 %) 90 95 [Pulse Rate] -Pulse Rate (60-100 beats/min) 69 54 L [Evaluation] -Activity Tolerance Good [Exercise] -Ambulation Distance (feet) 1,000 -Ambulation Distance (meters) 304.78 [Charges] -Treatment Charges
[2022-06-23 16:01] LABS: Hematocrit 41.3 % (42.0-52.0); Hemoglobin 13.7 g/dL (14.0-18.0); Mean Corpuscular HGB Conc 33.2 g/dl (32-36); Mean Corpuscular Hemoglobin 33.7 pg (26-34); Mean Corpuscular Volume 101.5 fl (80-100); Mean Platelet Volume 9.5 fl (7.4-10.4); Platelet Count Result 185 k/mm3 (150-375); Red Blood Count 4.07 M/mm3 (4.6-6.20); Red Cell Distribution Width 14.1 % (11.5-14.5); White Blood Count 6.9 K/mm3 (4.5-10.0)
[2022-06-23 16:14] LABS: Alanine Aminotransferase 23 U/L (6-50); Albumin Level 4.3 g/dL (3.5-5.1); Alkaline Phosphatase 70 U/L (38-126); Anion Gap 5 mmol/L (8-16); Aspartate Amino Transferase 23 U/L (17-59); Bilirubin,Total 0.7 mg/dL (0.2-1.3); Blood Urea Nitrogen 9 mg/dL (9-20); Calcium 8.7 mg/dL (8.4-10.2); Carbon Dioxide 30 mmol/L (22-30); Chloride 94 mmol/L (98-107); Estimated Glomerular Filt Rate > 60; Glucose 79 mg/dL (65-110); Potassium 4.5 mmol/L (3.4-5.0); Sodium 129 mmol/L (137-145)
[2022-06-23 16:22] LABS: NT Pro B Type Natriuretic Pept 214 pg/mL (19.9-100)
[2022-06-23 16:32] LABS: D Dimer 0.53 ug/mL (<0.48)
[2022-06-23 16:41] LABS: Appearance Urine Clear (Clear); Bilirubin Urine Negative (Negative); Blood Urine Negative (Negative); Color Urine Yellow (Yellow); Glucose Urine UA Negative (Negative); Ketones Urine Negative (Negative); Leukocyte Esterase Ur Negative LEU/UL (NEGATIVE); Nitrate Urine Negative (Negative); Protein Urine Negative (Negative); Specific Grav Ur 1.004 (1.001-1.035); Urobilinogen Urine 0.2 mg/dL (<2.0)
[2022-06-23 16:49] LABS: Add Urine Microscopic? NO
--- NOTE | 2022-06-24 10:43 | WPDPFTINT ---
PFT Procedure Performed PFT Procedure Performed Spirometry with Pre/Post Bronchodilator Plethysmography (Lung Vol) Diffusing Cap (DLCO) Flow Vol Loop PFT Interpretation This is a pulmonary function test with pre and post-bronchodilator spirometry, plethysmography and diffusing capacity. The test was performed and results interpreted in accordance with the 2019 and 2005 ATS/ERS Task Force guidelines respectively using the Global Lung Function Initiative-2012 reference equations. Patient demonstrated good effort and cooperation. Reproducibility criteria were met. The quality of the pre bronchodilator spirometry maneuver was Grade A and post bronchodilator spirometry maneuver was Grade A. Findings: Spirometry: There is decreased maximal expiratory airflow at all lung volumes with concave expiratory flow tracing. The pre bronchodilator FVC is 2.41 L, 50% predicted. The pre bronchodilator FEV1 is 1.07 L, 29% predicted. The pre bronchodilator FEV1: FVC ratio is 44%. The post bronchodilator FVC is 2.39 L, representing 1% decrease. The post bronchodilator FEV1 is 1.05 L, representing 1% decrease. The post bronchodilator FEV1: FVC ratio is 44%. Plethysmography: Total lung capacity is 6.85 L, 92% predicted. The functional residual capacity is 5.55 L, 141% predicted. The residual volume is 4.44 L, 182% predicted. Diffusion capacity: The diffusing capacity unadjusted for hemoglobin and carboxyhemoglobin is 16.4, 58% predicted. The diffusing capacity adjusted for alveolar volume is 4.97, 124% predicted. Impression: There is a very severe obstructive abnormality without significant improvement after inhaling a single dose of albuterol. The increase in residual volume is consistent with air trapping from an obstructive abnormality. Hyperinflation is present as demonstrated by the increase in functional residual capacity and is consistent with an obstructive abnormality. The diffusing capacity unadjusted for hemoglobin and carboxyhemoglobin is moderately decreased and normalizes when adjusted for alveolar volume. There are no prior studies for comparison
== END 2022-06-23 14:13 | disposition home or self-care (01) ==
PROVIDERS: PCP Internal Medicine; Visit Provider Nurse Practitioner Family
DX: R60.0 Localized edema (principal); R06.00 Dyspnea, unspecified; R94.2 Abnormal results of pulmonary function studies
CPT/HCPCS: 36415; 80053; 81003; 83880; 84443; 85027; 85380; 94060; 94618; 94726; 94729

== ENCOUNTER 2022-06-24 13:39 | Outpatient (CLI) | payer OTHER, SELFPAY ==
--- NOTE | ~2022-06-24 | US_ITS ---
EXAMINATION: US venous doppler [facility] DATE: 06/24/2022 14:31 INDICATION: Lower limb edema. TECHNIQUE: Grayscale ultrasound images without and with compression and Doppler ultrasound images of the bilateral lower extremity veins were obtained. COMPARISON: Ultrasound 07/16/2020 FINDINGS: The visualized portions of right common femoral vein, profunda (deep) femoral vein, femoral vein, pop liteal vein, peroneal veins, posterior tibial veins, and greater saphenous vein outflow are patent. The visualized portions of left common femoral vein, profunda femoral vein, femoral vein, popliteal v ein, peroneal veins, posterior tibial veins, and greater saphenous vein outflow are patent. IMPRESSION: 1. No deep venous thrombosis. Reviewed, dictated and finalized at location A.
== END 2022-06-24 13:40 | disposition home or self-care (01) ==
LOC: CHSIMG 13:42
PROVIDERS: PCP Internal Medicine; Visit Provider Internal Medicine
DX: R22.43 Localized swelling, mass and lump, lower limb, bilateral (principal); R79.1 Abnormal coagulation profile
CPT/HCPCS: 93970

== ENCOUNTER 2022-07-01 08:20 | Outpatient (CLI) | payer OTHER, SELFPAY ==
[2022-07-01 08:33] LABS: Basophils Absolute Auto 0.05 K/mm3 (0.00-0.10); Basophils Percent Auto 0.7 % (0.0-1.0); Eosinophils Absolute Auto 0.29 K/mm3 (0.02-0.50); Eosinophils Percent Auto 4.2 % (1.0-6.0); Hematocrit 44.6 % (40.0-54.0); Hemoglobin 15.2 g/dL (14.0-18.0); Immature Granulocyte Absolute 0.02 K/mm3 (0.00-0.00); Immature Granulocyte Percent A 0.3 % (0.0-0.0); Lymphocytes Absolute Auto 1.36 K/mm3 (1.10-4.50); Lymphocytes Percent Auto 19.8 % (18.0-42.0); Mean Corpuscular HGB Conc 34.1 g/dL (32.0-36.0); Mean Corpuscular Hemoglobin 34.4 pg (27.0-31.0); Mean Corpuscular Volume 100.9 fL (78.0-102.0); Mean Platelet Volume 9.6 fl (8.7-11.0); Monocytes Absolute Auto 0.57 K/mm3 (0.10-0.90); Monocytes Percent Auto 8.3 % (2.0-11.0); Neutrophils Absolute Auto 4.6 K/mm3 (1.7-7.2); Neutrophils Percent Auto 66.7 % (50.0-70.0); Platelet Count Result 177 K/mm3 (150-420); Red Blood Count 4.42 M/mm3 (4.70-6.10); Red Cell Distribution Width 13.6 % (11.6-14.4); White Blood Count 6.9 K/mm3 (4.8-10.8)
[2022-07-01 08:34] LABS: Appearance Urine Clear (Clear); Bilirubin Urine Negative (Negative); Blood Urine Negative (Negative); Color Urine Light Yellow (Yellow); Glucose Urine UA Negative (Negative); Ketones Urine Negative (Negative); Leukocyte Esterase Ur Negative LEU/UL (Negative); Nitrate Urine Negative (Negative); Protein Urine Negative (Negative); Urobilinogen Urine 0.2 mg/dL (0.2-1.0); pH Urine 5.5 (5.0-8.0)
[2022-07-01 08:36] LABS: Add Urine Microscopic? NO
[2022-07-01 09:15] LABS: Alanine Aminotransferase 25 U/L (16-63); Albumin Level 3.7 g/dL (3.4-5.0); Alkaline Phosphatase 81 U/L (46-116); Anion Gap 6 mmol/L (8-16); Aspartate Amino Transferase 18 U/L (15-37); Bilirubin,Total 0.4 mg/dL (0.00-1.00); Blood Urea Nitrogen 8 mg/dL (7-18); Calcium 8.8 mg/dL (8.5-10.1); Carbon Dioxide 34 mmol/L (21-32); Chloride 94 mmol/L (98-108); Cholesterol 188 mg/dL (0-200); Estimated Glomerular Filt Rate > 60; Free T3 2.95 pg/mL (2.18-3.98); Free T4 Free Thyroxine 0.66 ng/dL (0.76-1.46); Glucose 85 mg/dL (70-99); HDL Direct 88 mg/dL (40-60); LDL Cholesterol Calculated 88 mg/dL (<130); Osmolality Calculated 275 mOsm/kg (285-295); Potassium 4.5 mmol/L (3.5-5.1); Sodium 134 mmol/L (136-145); Thyroid Stimulating Hormone 1.32 uIU/mL (0.36-3.74); Total Protein 7.5 g/dL (6.4-8.2); Triglycerides 62 mg/dL (0-150)
== END 2022-07-01 08:21 | disposition home or self-care (01) ==
LOC: CHSLAB 08:22
PROVIDERS: PCP Internal Medicine; Visit Provider Internal Medicine
DX: I10 Essential (primary) hypertension (principal); E05.80 Other thyrotoxicosis without thyrotoxic crisis or storm; Z12.5 Encounter for screening for malignant neoplasm of prostate; N39.0 Urinary tract infection, site not specified
CPT/HCPCS: 36415; 80053; 80061; 81003; 84439; 84443; 84481; 85025

== ENCOUNTER 2022-07-12 08:24 | Outpatient (CLI) | payer OTHER, SELFPAY | END 2022-07-12 08:25 | disposition home or self-care (01) | LOC: ANHLAB 08:25 | PROVIDERS: PCP Internal Medicine; Visit Provider Nurse Practitioner Family | DX: G47.61 Periodic limb movement disorder (principal) | CPT/HCPCS: 36415; 82728 ==

== ENCOUNTER 2022-07-30 08:50 | Outpatient (CLI) | payer OTHER, SELFPAY ==
[2022-07-30 10:15] LABS: Alanine Aminotransferase 42 U/L (16-63); Albumin Level 3.3 g/dL (3.4-5.0); Alkaline Phosphatase 109 U/L (46-116); Anion Gap 6 mmol/L (8-16); Aspartate Amino Transferase 39 U/L (15-37); Bilirubin,Total 0.4 mg/dL (0.00-1.00); Blood Urea Nitrogen 4 mg/dL (7-18); Carbon Dioxide 36 mmol/L (21-32); Chloride 96 mmol/L (98-108); Estimated Glomerular Filt Rate > 60; Glucose 90 mg/dL (70-99); Magnesium 1.7 mg/dL (1.8-2.4); NT Pro B Type Natriuretic Pept 374 pg/mL (0-125); Osmolality Calculated 282 mOsm/kg (285-295); Sodium 138 mmol/L (136-145); Total Protein 8.1 g/dL (6.4-8.2)
== END 2022-07-30 08:51 | disposition home or self-care (01) ==
LOC: CHSLAB 08:51
PROVIDERS: PCP Internal Medicine; Visit Provider Internal Medicine
DX: E87.1 Hypo-osmolality and hyponatremia (principal); Z79.899 Other long term (current) drug therapy; I50.9 Heart failure, unspecified
CPT/HCPCS: 36415; 80053; 83735; 83880

== ENCOUNTER 2022-09-02 13:01 | Outpatient (CLI) | payer OTHER, SELFPAY ==
[2022-09-02 13:14] LABS: Basophils Absolute Auto 0.1 K/mm3 (0.0-0.1); Basophils Percent Auto 0.7 % (0.2-1.2); Eosinophils Absolute Auto 0.2 K/mm3 (0-0.3); Eosinophils Percent Auto 2.3 % (0-4.4); Hematocrit 46.1 % (42.0-52.0); Immature Granulocyte Absolute 0.03 K/mm3 (0.00-0.031); Immature Granulocyte Percent A 0.4 % (0-0.5); Lymphocytes Absolute Auto 1.28 K/mm3 (0.9-3.2); Lymphocytes Percent Auto 18.1 % (18.3-44.2); Mean Corpuscular HGB Conc 34.7 g/dl (32-36); Mean Corpuscular Hemoglobin 33.9 pg (26-34); Mean Corpuscular Volume 97.7 fl (80-100); Mean Platelet Volume 9.3 fl (7.4-10.4); Monocytes Absolute Auto 0.6 K/mm3 (0.1-0.6); Monocytes Percent Auto 8.6 % (2.6-8.5); Neutrophils Percent Auto 69.9 % (45.5-73.1); Platelet Count Result 165 k/mm3 (150-375); Red Blood Count 4.72 M/mm3 (4.6-6.20); Red Cell Distribution Width 12.6 % (11.5-14.5); White Blood Count 7.1 K/mm3 (4.5-10.0)
[2022-09-02 13:21] LABS: Blood Urea Nitrogen 10 mg/dL (8-26); Carbon Dioxide 30 mmol/L (22-30); Chloride 88 mmol/L (98-109); Estimated Glomerular Filt Rate > 60; Glucose 97 mg/dL (70-105); Ionized Calcium (POC) 1.06 mmol/L (1.11-1.31); Potassium 3.7 mmol/L (3.5-4.9); Sodium 131 mmol/L (138-146)
[2022-09-02 16:32] LABS: Alanine Aminotransferase 34 U/L (6-50); Albumin Level 4.1 g/dL (3.5-5.1); Alkaline Phosphatase 66 U/L (38-126); Anion Gap 6 mmol/L (8-16); Aspartate Amino Transferase 32 U/L (17-59); Bilirubin,Total 0.5 mg/dL (0.2-1.3); Blood Urea Nitrogen 12 mg/dL (9-20); Calcium 9.2 mg/dL (8.4-10.2); Carbon Dioxide 33 mmol/L (22-30); Chloride 88 mmol/L (98-107); Estimated Glomerular Filt Rate > 60; Glucose 94 mg/dL (65-110); Potassium 3.7 mmol/L (3.4-5.0); Sodium 127 mmol/L (137-145)
== END 2022-09-02 13:02 | disposition home or self-care (01) ==
LOC: ANHLAB 13:02
PROVIDERS: PCP Internal Medicine; Visit Provider Internal Medicine Hematology & Oncology
DX: C34.12 Malignant neoplasm of upper lobe, left bronchus or lung (principal)
CPT/HCPCS: 36415; 80047; 80053; 85025

== ENCOUNTER 2022-09-27 07:35 | Outpatient (CLI) | payer OTHER, SELFPAY ==
[2022-09-27 09:00] LABS: Alanine Aminotransferase 36 U/L (16-63); Albumin Level 3.3 g/dL (3.4-5.0); Alkaline Phosphatase 72 U/L (46-116); Anion Gap 5 mmol/L (8-16); Aspartate Amino Transferase 18 U/L (15-37); Bilirubin,Total 0.5 mg/dL (0.00-1.00); Blood Urea Nitrogen 10 mg/dL (7-18); Calcium 8.9 mg/dL (8.5-10.1); Carbon Dioxide 35 mmol/L (21-32); Chloride 96 mmol/L (98-108); Estimated Glomerular Filt Rate > 60; Free T4 Free Thyroxine 0.85 ng/dL (0.76-1.46); Glucose 106 mg/dL (70-99); NT Pro B Type Natriuretic Pept 409 pg/mL (0-125); Osmolality Calculated 281 mOsm/kg (285-295); Potassium 4.5 mmol/L (3.5-5.1); Sodium 136 mmol/L (136-145); Thyroid Stimulating Hormone 1.88 uIU/mL (0.36-3.74); Total Protein 6.8 g/dL (6.4-8.2)
[2022-09-30 07:36] LABS: Total Triiodothyronine (T3) 86.5 ng/dL (76-181)
== END 2022-09-27 07:36 | disposition home or self-care (01) ==
LOC: CHSLAB 07:37
PROVIDERS: PCP Internal Medicine; Visit Provider Internal Medicine
DX: I50.9 Heart failure, unspecified (principal); E05.90 Thyrotoxicosis, unspecified without thyrotoxic crisis or storm
CPT/HCPCS: 36415; 80053; 83735; 83880; 84439; 84443; 84480

== ENCOUNTER 2022-11-04 14:57 | Outpatient (CLI) | payer OTHER, SELFPAY ==
--- NOTE | ~2022-11-04 | CT_ITS ---
Clinical Indication: Lung cancer CT Scan of the Chest with Contrast: Technique: Contiguous sections were acquired throughout the chest after intravenous administration of 75 cc of Omnipaque 350. Dose reduction technique was used on this scan by utilizing automated exposu re control and iterative reconstruction technique. The dose-length product (DLP) was 188.43 mGy-cm. COMPARISON: 04/29/2022 Findings: Shotty mediastinal lymph nodes are similar to prior exam. Calcified right paratracheal, subcarinal, a nd right hilar lymph nodes are again present. There is no filling defect in the pulmonary arterial tr ee to suggest pulmonary embolus. There is no evidence of aortic dissection or aneurysm. Atherosclerot ic calcifications of the coronary arteries are present. There is no evidence of pleural or pericardial effusion. There is a 1 cm left upper lobe pulmonary nodule, similar minimally decreased from prior exam (axial image 26). Several small peripheral pulmonary nodules are stable from prior exam, suggestive of small impacted airways or minimal scarring. Several calcified granulomas are present. Images through the upper abdomen reveal calcified splenic and hepatic granulomas. Impression: 1 cm left upper lobe pulmonary nodule, similar to minimally decreased from prior exam. This nodule wa s previously biopsied, and shown to represent squamous cell carcinoma. No evidence for metastatic disease. Evidence of prior granulomatous disease. Reviewed, dictated and finalized at location . Impression: 1 cm left upper lobe pulmonary nodule, similar to minimally decreased from prio r exam. This nodule was previously biopsied, and shown to represent squamous ce ll carcinoma. No evidence for metastatic disease. Evidence of prior granulomatous disease.
[2022-11-04 15:29] LABS: Estimated Glomerular Filt Rate > 60
== END 2022-11-04 14:58 | disposition home or self-care (01) ==
PROVIDERS: PCP Internal Medicine; Visit Provider Internal Medicine Hematology & Oncology
DX: C34.12 Malignant neoplasm of upper lobe, left bronchus or lung (principal)
CPT/HCPCS: 71260; Q9967

== ENCOUNTER 2022-11-05 11:22 | Outpatient (CLI) | payer OTHER, SELFPAY ==
[2022-11-05 11:35] LABS: Basophils Absolute Auto 0.1 K/mm3 (0.0-0.1); Basophils Percent Auto 0.8 % (0.2-1.2); Eosinophils Absolute Auto 0.2 K/mm3 (0-0.3); Eosinophils Percent Auto 2.4 % (0-4.4); Hematocrit 41.9 % (42.0-52.0); Hemoglobin 14.2 g/dL (14.0-18.0); Immature Granulocyte Absolute 0.02 K/mm3 (0.00-0.031); Immature Granulocyte Percent A 0.3 % (0-0.5); Lymphocytes Absolute Auto 1.42 K/mm3 (0.9-3.2); Lymphocytes Percent Auto 22.4 % (18.3-44.2); Mean Corpuscular HGB Conc 33.9 g/dl (32-36); Mean Corpuscular Hemoglobin 34.4 pg (26-34); Mean Corpuscular Volume 101.5 fl (80-100); Mean Platelet Volume 9.2 fl (7.4-10.4); Monocytes Absolute Auto 0.6 K/mm3 (0.1-0.6); Monocytes Percent Auto 8.8 % (2.6-8.5); Neutrophils Absolute Auto 4.1 K/mm3 (1.3-6.7); Neutrophils Percent Auto 65.3 % (45.5-73.1); Platelet Count Result 191 k/mm3 (150-375); Red Blood Count 4.13 M/mm3 (4.6-6.20); Red Cell Distribution Width 13.9 % (11.5-14.5); White Blood Count 6.3 K/mm3 (4.5-10.0)
[2022-11-05 11:39] LABS: Blood Urea Nitrogen 13 mg/dL (8-26); Carbon Dioxide 33 mmol/L (22-30); Chloride 89 mmol/L (98-109); Estimated Glomerular Filt Rate > 60; Glucose 128 mg/dL (70-105); Potassium 3.8 mmol/L (3.5-4.9); Sodium 130 mmol/L (138-146)
[2022-11-05 16:42] LABS: Alanine Aminotransferase 24 U/L (6-50); Albumin Level 4.4 g/dL (3.5-5.1); Alkaline Phosphatase 68 U/L (38-126); Anion Gap 6 mmol/L (8-16); Aspartate Amino Transferase 28 U/L (17-59); Bilirubin,Total 0.5 mg/dL (0.2-1.3); Blood Urea Nitrogen 15 mg/dL (9-20); Calcium 8.8 mg/dL (8.4-10.2); Carbon Dioxide 35 mmol/L (22-30); Chloride 88 mmol/L (98-107); Estimated Glomerular Filt Rate > 60; Glucose 121 mg/dL (65-110); Potassium 3.8 mmol/L (3.4-5.0); Sodium 129 mmol/L (137-145)
== END 2022-11-05 11:23 | disposition home or self-care (01) ==
LOC: ANHLAB 11:24
PROVIDERS: PCP Internal Medicine; Visit Provider Internal Medicine Hematology & Oncology
DX: C34.12 Malignant neoplasm of upper lobe, left bronchus or lung (principal)
CPT/HCPCS: 36415; 80047; 80053; 85025

== ENCOUNTER 2023-01-11 15:07 | Outpatient (CLI) | payer OTHER, SELFPAY ==
[2023-01-11 15:27] LABS: Basophils Absolute Auto 0.04 K/mm3 (0.00-0.10); Basophils Percent Auto 0.7 % (0.0-1.0); Eosinophils Absolute Auto 0.18 K/mm3 (0.02-0.50); Eosinophils Percent Auto 3.1 % (1.0-6.0); Hematocrit 42.7 % (40.0-54.0); Hemoglobin 14.4 g/dL (14.0-18.0); Immature Granulocyte Absolute 0.02 K/mm3 (0.00-0.00); Immature Granulocyte Percent A 0.3 % (0.0-0.0); Lymphocytes Absolute Auto 1.18 K/mm3 (1.10-4.50); Lymphocytes Percent Auto 20.2 % (18.0-42.0); Mean Corpuscular HGB Conc 33.7 g/dL (32.0-36.0); Mean Corpuscular Hemoglobin 34.9 pg (27.0-31.0); Mean Corpuscular Volume 103.4 fL (78.0-102.0); Mean Platelet Volume 9.5 fl (8.7-11.0); Monocytes Absolute Auto 0.54 K/mm3 (0.10-0.90); Monocytes Percent Auto 9.3 % (2.0-11.0); Neutrophils Absolute Auto 3.9 K/mm3 (1.7-7.2); Neutrophils Percent Auto 66.4 % (50.0-70.0); Platelet Count Result 205 K/mm3 (150-420); Red Blood Count 4.13 M/mm3 (4.70-6.10); Red Cell Distribution Width 13.1 % (11.6-14.4); White Blood Count 5.8 K/mm3 (4.8-10.8)
[2023-01-11 16:36] LABS: Alanine Aminotransferase 25 U/L (16-63); Albumin Level 3.4 g/dL (3.4-5.0); Alkaline Phosphatase 82 U/L (46-116); Anion Gap 6 mmol/L (8-16); Aspartate Amino Transferase 19 U/L (15-37); Bilirubin,Total 0.4 mg/dL (0.00-1.00); Blood Urea Nitrogen 13 mg/dL (7-18); Calcium 9.2 mg/dL (8.5-10.1); Carbon Dioxide 35 mmol/L (21-32); Chloride 95 mmol/L (98-108); Estimated Glomerular Filt Rate > 60; Free T4 Free Thyroxine 0.91 ng/dL (0.76-1.46); Glucose 93 mg/dL (70-99); Magnesium 1.8 mg/dL (1.8-2.4); NT Pro B Type Natriuretic Pept 251 pg/mL (0-125); Osmolality Calculated 282 mOsm/kg (285-295); Sodium 136 mmol/L (136-145); Thyroid Stimulating Hormone 0.65 uIU/mL (0.36-3.74); Total Protein 7.3 g/dL (6.4-8.2)
== END 2023-01-11 15:08 | disposition home or self-care (01) ==
LOC: CHSLAB 15:09
PROVIDERS: PCP Internal Medicine; Visit Provider Internal Medicine
DX: I50.9 Heart failure, unspecified (principal); E05.90 Thyrotoxicosis, unspecified without thyrotoxic crisis or storm
CPT/HCPCS: 36415; 80053; 83735; 83880; 84153; 84439; 84443; 84481; 85025; G0103

== ENCOUNTER 2023-01-24 08:53 | Outpatient (CLI) | payer OTHER, SELFPAY ==
--- NOTE | ~2023-01-24 | CT_ITS ---
Clinical Indication: Lung cancer CT Scan of the Chest with Contrast: Technique: Contiguous sections were acquired throughout the chest after intravenous administration of 75 cc of Omnipaque 350. Dose reduction technique was used on this scan by utilizing automated exposu re control and iterative reconstruction technique. The dose-length product (DLP) was 304.51 mGy-cm. COMPARISON: 11/04/2022 Findings: Shotty prevascular/AP window lymph nodes are present, similar to prior exam. Densely calcified right paratracheal and subcarinal lymph nodes are present. There is no filling defect in the pulmonary jen rial tree to suggest pulmonary embolus. There is no evidence of aortic dissection or aneurysm. Wong ry artery calcium calcifications are present. There is no evidence of pleural or pericardial effusion. Probable minimal tree-in-bud opacities in the right lower lobe versus minimal atelectatic change. 8 m m with spiculated nodule present at the left upper lobe (axial image 31). There is minimal emphysema. Images through the upper abdomen reveal no abnormalities. Impression: 8 mm left apical pulmonary nodule, essentially stable from prior exam. Shotty/mildly prominent prevascular and AP window lymph nodes, unchanged, indeterminate. Minimal tree-in-bud opacities in the right lower lobe versus atelectatic changes. Correlate for small airways infectious process. Reviewed, dictated and finalized at location [facility] Impression: 8 mm left apical pulmonary nodule, essentially stable from prior exam. Shotty/mildly prominent prevascular and AP window lymph nodes, unchanged, indet erminate. Minimal tree-in-bud opacities in the right lower lobe versus atelectatic change s. Correlate for small airways infectious process.
== END 2023-01-24 08:54 | disposition home or self-care (01) ==
PROVIDERS: PCP Internal Medicine; Visit Provider Internal Medicine Hematology & Oncology
DX: C34.12 Malignant neoplasm of upper lobe, left bronchus or lung (principal)
CPT/HCPCS: 71260; Q9967

== ENCOUNTER 2023-04-19 10:26 | Outpatient (CLI) | payer OTHER, SELFPAY ==
[2023-04-19 11:22] LABS: Alanine Aminotransferase 39 U/L (16-63); Albumin Level 3.8 g/dL (3.4-5.0); Alkaline Phosphatase 93 U/L (46-116); Anion Gap 7 mmol/L (8-16); Aspartate Amino Transferase 37 U/L (15-37); Bilirubin,Total 0.7 mg/dL (0.00-1.00); Blood Urea Nitrogen 10 mg/dL (7-18); Calcium 8.8 mg/dL (8.5-10.1); Carbon Dioxide 34 mmol/L (21-32); Chloride 93 mmol/L (98-108); Estimated Glomerular Filt Rate > 60; Free T3 3.52 pg/mL (2.18-3.98); Free T4 Free Thyroxine 0.81 ng/dL (0.76-1.46); Glucose 95 mg/dL (70-99); Magnesium 1.9 mg/dL (1.8-2.4); NT Pro B Type Natriuretic Pept 316 pg/mL (0-125); Osmolality Calculated 277 mOsm/kg (285-295); Potassium 4.2 mmol/L (3.5-5.1); Sodium 134 mmol/L (136-145); Thyroid Stimulating Hormone 0.16 uIU/mL (0.36-3.74); Total Protein 7.5 g/dL (6.4-8.2)
== END 2023-04-19 10:27 | disposition home or self-care (01) ==
LOC: CHSLAB 10:28
PROVIDERS: PCP Internal Medicine; Visit Provider Internal Medicine
DX: I10 Essential (primary) hypertension (principal); E05.90 Thyrotoxicosis, unspecified without thyrotoxic crisis or storm; I50.9 Heart failure, unspecified
CPT/HCPCS: 36415; 80053; 83735; 83880; 84439; 84443; 84481

== ENCOUNTER 2023-05-03 08:49 | Outpatient (CLI) | payer OTHER, SELFPAY ==
--- NOTE | ~2023-05-03 | CT_ITS ---
Clinical Indication: Malignancy CT Scan of the Chest with Contrast: Technique: Contiguous sections were acquired throughout the chest after intravenous administration of 75 cc of Omnipaque 350. Dose reduction technique was used on this scan by utilizing automated exposu re control and iterative reconstruction technique. The dose-length product (DLP) was 226.56 mGy-cm. COMPARISON: 01/24/2023 Findings: Mildly enlarged left paratracheal and prevascular lymph nodes are unchanged. Calcified subcarinal and right paratracheal lymph nodes are unchanged.. There is no filling defect in the pulmonary arterial tree to suggest pulmonary embolus. There is no evidence of aortic dissection or aneurysm. There is no evidence of pleural or pericardial effusion. Mild emphysema noted. Mild patchy airspace opacity right lung base probably represents focal pneumoni a or atelectatic change. Stable left apical pulmonary nodule measuring 7 mm. Images through the upper abdomen reveal no abnormalities. Impression: Overall, no change from prior exam. Stable left apical pulmonary nodule measuring 7 mm. Stable shotty, mildly prominent left-sided mediastinal lymph nodes, as detailed above. Patchy airspace opacity right lung base is suspicious for right basilar pneumonia/small airways infec tious process. Reviewed, dictated and finalized at [facility]. Impression: Overall, no change from prior exam. Stable left apical pulmonary nodule measuri ng 7 mm. Stable shotty, mildly prominent left-sided mediastinal lymph nodes, as detailed above. Patchy airspace opacity right lung base is suspicious for right basilar pneumon ia/small airways infectious process.
== END 2023-05-03 08:50 | disposition home or self-care (01) ==
LOC: ANHIMG 08:51
PROVIDERS: PCP Internal Medicine; Visit Provider Radiology Radiation Oncology
DX: C34.90 Malignant neoplasm of unspecified part of unspecified bronchus or lung (principal); R91.8 Other nonspecific abnormal finding of lung field; R91.1 Solitary pulmonary nodule
CPT/HCPCS: 71260; Q9967

== ENCOUNTER 2023-05-12 13:57 | Outpatient (CLI) | payer OTHER, SELFPAY ==
--- NOTE | 2023-05-12 14:22 | ECG_ITS ---
Measurements Intervals [place] Rate: 47 P: 59 PA: 144 QRS: 65 QRSD: 97 T: 66 QT: 468 QTc: 418 Interpretive Statements SINUS BRADYCARDIA TALL T-WAVES, SUGGESTS HYPERKALEMIA ABNORMAL ECG COMPARED TO ECG 09/23/2021 09:53:32 NO SIGNIFICANT CHANGES Electronically Signed On 05-12-2023 14:44:26 CDT by Vamshi Harris D.O.
== END 2023-05-12 13:58 | disposition home or self-care (01) ==
LOC: CHSCARD 13:59
PROVIDERS: PCP Internal Medicine; Visit Provider Internal Medicine Cardiovascular Disease
DX: I48.92 Unspecified atrial flutter (principal); R00.1 Bradycardia, unspecified; R94.31 Abnormal electrocardiogram [ECG] [EKG]
CPT/HCPCS: 93005

== ENCOUNTER 2023-05-20 09:04 | Outpatient (CLI) | payer OTHER, SELFPAY ==
[2023-05-20 09:25] VITALS: PULSE 48; O2SAT 93
[2023-05-20 09:35] VITALS: PULSE 85; O2SAT 92
--- NOTE | 2023-05-20 09:57 | HOMEO2EVAL ---
Evaluation was performed at [facility] Home Oxygen Evaluation RC: Home Oxygen (O2) Evaluation Start: 05/20/23 09:49 Freq: Status: Active Protocol: RPE Activity Type Activity Date Activity User E-sign Co-sign Detail Recorded Client Recorded Date Recorded By Document 05/20/23 09:25 RES [id number] 05/20/23 09:56 RES Document 05/20/23 09:35 RES [id number] 05/20/23 09:56 RES 05/20/23 05/20/23 09:25 09:35 Home O2 Evaluation [Oxygen] -Test Phase Resting Exercise -Oxygen Delivery Room Air Room Air -Fraction of Inspired Oxygen (%) 21 [Pulse Oximetry] -Pulse Oximetry (90-100 %) 93 92 [Pulse Rate] -Pulse Rate (60-100 beats/min) 48 L 85 [Evaluation] -Activity Tolerance Good Good -Rating of Perceived Dyspnea (PD) +2 Mild, Some Difficulty, Noticeable to the Observer -Rate of Perceived Exertion (PE) 12 Query Text:Click the Protocol Button to View the RPE Scale [Exercise] -Ambulation Distance (feet) 1,290 -Ambulation Distance (meters) 393.17 [Comments] -Home Oxygen Evaluation Comments will begin walk Walked patient on room air 1290 feet, patient did not have to be placed on O2. Patient sats stayed 92% to 93% throughout walk. [Charges] -Evaluation Charges O2 Evaluation Charge
== END 2023-05-20 09:05 | disposition home or self-care (01) ==
PROVIDERS: PCP Internal Medicine; Visit Provider Nurse Practitioner Family
DX: R06.09 Other forms of dyspnea (principal)
CPT/HCPCS: 94618

== ENCOUNTER 2023-06-28 10:53 | Outpatient (CLI) | payer MEDICARE, MEDICAID, SELFPAY ==
--- NOTE | ~2023-06-28 | XR_ITS ---
Clinical Indication: Shortness of breath PA and lateral views of the chest: Comparison: 05/25/2022 Findings: The lungs are clear, without evidence of focal consolidation or pleural effusion. Stable ca lcified right paratracheal lymph nodes. Cardiomediastinal silhouette is within normal limits. Bones a nd soft tissues are unremarkable. Impression: Clear lungs. Stable calcified right paratracheal lymph nodes. Reviewed, dictated and finalized at location . Impression: Clear lungs. Stable calcified right paratracheal lymph nodes.
== END 2023-06-28 10:54 | disposition home or self-care (01) ==
PROVIDERS: PCP Internal Medicine; Visit Provider Nurse Practitioner Family
DX: R06.02 Shortness of breath (principal)
CPT/HCPCS: 71046

== ENCOUNTER 2023-07-05 13:02 | Outpatient (CLI) | payer MEDICARE, MEDICAID, SELFPAY ==
[2023-07-05 13:18] VITALS: PULSE 86; O2SAT 85
[2023-07-05 13:20] VITALS: PULSE 89; O2SAT 88
[2023-07-05 13:24] VITALS: PULSE 89; O2SAT 93
--- NOTE | 2023-07-05 13:37 | HOMEO2EVAL ---
Evaluation was performed at [facility] Home Oxygen Evaluation RC: Home Oxygen (O2) Evaluation Start: 07/05/23 13:29 Freq: Status: Active Protocol: RPE Activity Type Activity Date Activity User E-sign Co-sign Detail Recorded Client Recorded Date Recorded By Document 07/05/23 13:15 [email or web address] 07/05/23 13:37 SJB Document 07/05/23 13:18 [email or web address] 07/05/23 13:37 SJB Document 07/05/23 13:20 [email or web address] 07/05/23 13:37 SJB Document 07/05/23 13:24 [email or web address] 07/05/23 13:37 SJB 07/05/23 07/05/23 07/05/23 13:15 13:18 13:20 Home O2 Evaluation [Oxygen] -Test Phase Resting Exercise Exercise -Oxygen Delivery Room Air Room Air Nasal Cannula -Oxygen Flow Rate (L/min) 1 [Pulse Oximetry] -Pulse Oximetry (90-100 %) 85 L 88 L [Pulse Rate] -Pulse Rate (60-100 beats/min) 86 89 [Evaluation] -Activity Tolerance Good Good -Rating of Perceived Dyspnea (PD) +2 Mild, Some +2 Mild, Some Difficulty, Difficulty, Noticeable to Noticeable to the Observer the Observer -Rate of Perceived Exertion (PE) 12 12 Query Text:Click the Protocol Button to View the RPE Scale [Exercise] -Ambulation Distance (feet) 365 340 -Ambulation Distance (meters) 111.24 103.62 [Comments] -Home Oxygen Evaluation Comments Sp02 92% on After 365 ft, After 340 ft on room air pt's sp02 1 lpm, pt's sitting. Will dropped to 85%, Sp02 dropped to begin walk on r HR 86. Will 88%. /a. start on 1 lpm Increased 02 to 02. 2 lpm. [Charges] -Evaluation Charges O2 Evaluation Charge 07/05/23 13:24 Home O2 Evaluation [Oxygen] -Test Phase Exercise -Oxygen Delivery Nasal Cannula -Oxygen Flow Rate (L/min) 2 [Pulse Oximetry] -Pulse Oximetry (90-100 %) 93 [Pulse Rate] -Pulse Rate (60-100 beats/min) 89 [Evaluation] -Activity Tolerance Good -Rating of Perceived Dyspnea (PD) +2 Mild, Some Difficulty, Noticeable to the Observer -Rate of Perceived Exertion (PE) 12 Query Text:Click the Protocol Button to View the RPE Scale [Exercise] -Ambulation Distance (feet) 340 -Ambulation Distance (meters) 103.62 [Comments] -Home Oxygen Evaluation Comments After approx 1045 ft total, the patient finished the walk on 2 lpm with the Sp02 staying at 93% and above. Tolerated well. [Charges] -Evaluation Charges
== END 2023-07-05 13:03 | disposition home or self-care (01) ==
LOC: CHSCARD 13:06
PROVIDERS: PCP Internal Medicine; Visit Provider Physician Assistant
DX: C34.92 Malignant neoplasm of unspecified part of left bronchus or lung (principal); J44.9 Chronic obstructive pulmonary disease, unspecified; R09.02 Hypoxemia
CPT/HCPCS: 94618

== ENCOUNTER 2023-07-13 14:14 | Outpatient (CLI) | payer MEDICARE, MEDICAID, SELFPAY ==
--- NOTE | ~2023-07-13 | XR_ITS ---
XR chest 2V DATE: 07/13/2023 14:45 INDICATION: Wheezing. Shortness of breath. History of lung cancer, COPD. TECHNIQUE: 2 views COMPARISON: 06/28/2023 PA and lateral chest FINDINGS: Mild cardiomegaly. No hilar or mediastinal enlargement. Calcified right paratracheal nodes consistent with old granulomatous disease. Moderate bilateral hyperinflation. No pulmonary infiltrate or consolidation, pleural effusion or pulm onary vascular congestion or pneumothorax is detected. IMPRESSION: Moderate hyperinflation; no active pulmonary disease Mild cardiomegaly Reviewed, dictated and finalized at location B.
[2023-07-13 14:36] LABS: Appearance Urine Clear (Clear); Basophils Absolute Auto 0.01 K/mm3 (0.00-0.10); Basophils Percent Auto 0.1 % (0.0-1.0); Bilirubin Urine Negative (Negative); Blood Urine Negative (Negative); Color Urine Light Yellow (Yellow); Eosinophils Absolute Auto 0.03 K/mm3 (0.02-0.50); Eosinophils Percent Auto 0.3 % (1.0-6.0); Glucose Urine UA Negative (Negative); Hematocrit 44.7 % (37.0-46.0); Hemoglobin 14.8 g/dL (12.4-15.3); Immature Granulocyte Absolute 0.08 K/mm3 (0.00-0.00); Immature Granulocyte Percent A 0.7 % (0.0-0.0); Ketones Urine Negative (Negative); Leukocyte Esterase Ur Negative (Negative); Lymphocytes Absolute Auto 1.39 K/mm3 (1.10-4.50); Lymphocytes Percent Auto 12.1 % (18.0-42.0); Mean Corpuscular HGB Conc 33.1 g/dL (32-36); Mean Corpuscular Hemoglobin 33.3 pg (27.0-31.0); Mean Corpuscular Volume 100.4 fL (78.0-102.0); Mean Platelet Volume 9.2 fl (8.7-11.0); Monocytes Absolute Auto 0.71 K/mm3 (0.10-0.90); Monocytes Percent Auto 6.2 % (2.0-11.0); Neutrophils Percent Auto 80.6 % (50.0-70.0); Nitrate Urine Negative (Negative); Platelet Count Result 172 K/mm3 (150-420); Protein Urine Negative (Negative); Red Blood Count 4.45 M/mm3 (4.70-6.10); Red Cell Distribution Width 14.2 % (11.6-14.4); Specific Grav Ur <= 1.005 (1.010-1.020); Urobilinogen Urine 0.2 mg/dL (0.2-1.0); White Blood Count 11.5 K/mm3 (4.8-10.8)
[2023-07-13 14:44] LABS: Add Urine Microscopic? NO
[2023-07-13 16:17] LABS: Alanine Aminotransferase 51 U/L (16-63); Albumin Level 3.6 g/dL (3.4-5.0); Alkaline Phosphatase 63 U/L (46-116); Anion Gap 7 mmol/L (4-12); Aspartate Amino Transferase 24 U/L (15-37); Bilirubin,Total 0.7 mg/dL (0.00-1.00); Blood Urea Nitrogen 17 mg/dL (7-18); Calcium 8.4 mg/dL (8.5-10.1); Carbon Dioxide 34 mmol/L (21-32); Chloride 88 mmol/L (98-108); Estimated Glomerular Filt Rate > 60; Free T4 Free Thyroxine 0.79 ng/dL (0.76-1.46); Glucose 81 mg/dL (70-99); NT Pro B Type Natriuretic Pept 463 pg/mL (0-125); Osmolality Calculated 268 mOsm/kg (285-295); Potassium 4.3 mmol/L (3.5-5.1); Sodium 129 mmol/L (136-145); Thyroid Stimulating Hormone 0.14 uIU/mL (0.36-3.74); Total Protein 7.4 g/dL (6.4-8.2)
== END 2023-07-13 14:15 | disposition home or self-care (01) ==
LOC: CHSLAB 14:17
PROVIDERS: PCP Internal Medicine; Visit Provider Nurse Practitioner Family
DX: I10 Essential (primary) hypertension (principal); R06.02 Shortness of breath; E05.80 Other thyrotoxicosis without thyrotoxic crisis or storm; I50.32 Chronic diastolic (congestive) heart failure; R60.0 Localized edema; R91.8 Other nonspecific abnormal finding of lung field; I51.7 Cardiomegaly
CPT/HCPCS: 36415; 71046; 80053; 81003; 83880; 84439; 84443; 85025

== ENCOUNTER 2023-07-15 11:17 | Outpatient (CLI) | payer MEDICARE, MEDICAID, SELFPAY ==
[2023-07-15 11:40] LABS: Base Excess ABG 1.8 mmol/L (0-2); Device ROOM AIR; HCO3 ABG 25.9 mmol/L (23-29); Modified Allen's Test Pass; Oxygen Content ABG 19.4 %vol (16.0-22.0); Oxygen Saturation ABG 94.2 % (95-97); Oxyhemoglobin 86.1 % (94-100); PCO2 ABG 39.1 mmHg (35-45); PO2 ABG 67.9 mmHg (80-90); Site Drawn RIGHT RADIAL; pH ABG 7.44 (7.35-7.45)
[2023-07-15 12:07] LABS: Alanine Aminotransferase 45 U/L (16-63); Albumin Level 3.3 g/dL (3.4-5.0); Alkaline Phosphatase 64 U/L (46-116); Anion Gap 4 mmol/L (4-12); Aspartate Amino Transferase 27 U/L (15-37); Bilirubin,Total 0.7 mg/dL (0.00-1.00); Blood Urea Nitrogen 17 mg/dL (7-18); Calcium 8.7 mg/dL (8.5-10.1); Carbon Dioxide 36 mmol/L (21-32); Chloride 87 mmol/L (98-108); Estimated Glomerular Filt Rate > 60; Glucose 94 mg/dL (70-99); NT Pro B Type Natriuretic Pept 837 pg/mL (0-125); Osmolality Calculated 265 mOsm/kg (285-295); Potassium 4.1 mmol/L (3.5-5.1); Sodium 127 mmol/L (136-145); Total Protein 7.6 g/dL (6.4-8.2)
== END 2023-07-15 11:18 | disposition home or self-care (01) ==
PROVIDERS: PCP Internal Medicine; Visit Provider Nurse Practitioner Family
DX: I50.32 Chronic diastolic (congestive) heart failure (principal); R60.9 Edema, unspecified; E87.1 Hypo-osmolality and hyponatremia
CPT/HCPCS: 36415; 36600; 80053; 82805; 83880

== ENCOUNTER 2023-07-18 20:28 | Emergency (ER) | payer MEDICARE, MEDICAID, SELFPAY ==
--- NOTE | ~2023-07-18 | XR_ITS ---
EXAMINATION: XR chest 1V portable 07/18/2023 21:44 INDICATION: Chest tightness. Atrial fibrillation. PROCEDURE: AP portable chest COMPARISON: Comparison to multiple prior studies sequentially, with oldest reviewed study dated 05/2022. FINDINGS: The lungs are clear. The cardiomediastinal silhouette is within normal limits. There are no pleural effusions. There is no pneumothorax suspected. There is evidence of chronic granulomatou s disease. IMPRESSION: 1: NO ACUTE CARDIOPULMONARY DISEASE. Reviewed, dictated and finalized at location A.
--- NOTE | 2023-07-18 20:47 | ECG_ITS ---
SEE SCANNED COPY FOR CONFIRMED REPORT MTDD
[2023-07-18 21:15] LABS: Basophils Percent Auto 0.2 % (0.2-1.2); Eosinophils Percent Auto 0.2 % (0-4.4); Hematocrit 46.7 % (42.0-52.0); Hemoglobin 16.2 g/dL (14.0-18.0); Immature Granulocyte Percent A 0.9 % (0-0.5); Lymphocytes Absolute Auto 0.91 K/mm3 (0.9-3.2); Lymphocytes Percent Auto 8.2 % (18.3-44.2); Mean Corpuscular HGB Conc 34.7 g/dl (32-36); Mean Corpuscular Hemoglobin 34.1 pg (26-34); Mean Corpuscular Volume 98.3 fl (80-100); Mean Platelet Volume 9.8 fl (7.4-10.4); Monocytes Absolute Auto 0.6 K/mm3 (0.1-0.6); Monocytes Percent Auto 5.3 % (2.6-8.5); Neutrophils Absolute Auto 9.5 K/mm3 (1.3-6.7); Neutrophils Percent Auto 85.2 % (45.5-73.1); Platelet Count Result 166 k/mm3 (150-375); Red Blood Count 4.75 M/mm3 (4.6-6.20); White Blood Count 11.1 K/mm3 (4.5-10.0)
[2023-07-18 21:16] LABS: Alanine Aminotransferase 36 U/L (6-50); Albumin Level 4.4 g/dL (3.5-5.1); Alkaline Phosphatase 70 U/L (38-126); Anion Gap 6 mmol/L (4-12); Aspartate Amino Transferase 31 U/L (17-59); Bilirubin,Total 1.2 mg/dL (0.2-1.3); Blood Urea Nitrogen 13 mg/dL (9-20); Calcium 8.9 mg/dL (8.4-10.2); Carbon Dioxide 34 mmol/L (22-30); Chloride 82 mmol/L (98-107); Estimated CRCL calculation 84 ml/min; Estimated Glomerular Filt Rate > 60; Glucose 118 mg/dL (65-110); INR 0.9; Potassium 3.4 mmol/L (3.4-5.0); Prothrombin Time 12.6 Seconds (11.1-14.7); Sodium 122 mmol/L (137-145)
[2023-07-18 21:17] LABS: Partial Thromboplastin Time 26.6 Seconds (22.3-36.8)
--- NOTE | 2023-07-18 21:29 | ED.ARRPALP ---
HPI - Arrhythmia/Palpitations General Chief Complaint: Altered Mental Status Stated Complaint: Altered mental status Time Seen by Provider: 07/18/23 21:20 Source: patient and family Limitations: no limitations History of Present Illness HPI narrative: Patient is a 63-year-old male presents to the emergency department accompanied by family for palpitations with chest tightness and difficulty breathing and lightheadedness. Patient notes that this started around approximately 6:00 p.m. when he was at rest, lasted for couple hours and has since resolved. Patient admits to history is in the past when he has had atrial fibrillation. Patient was reportedly slightly confused to family while this was going on and this is since resolved. Patient denies any recent injuries, recent illness. Patient denies any new or change medications and he has been taking all his medications as prescribed. Patient denies use of any blood thinners. Patient admits to seeing a vacuum forming machine operator regular basis Dr. Palumbo. Patient admits to history of lung cancer for which she was receiving radiation therapy and had his last radiation therapy in October of 2022. Patient denies use of any chemotherapy. Patient denies any alcohol use in the past 4 days. Patient denies fever, diarrhea, vomiting, abdominal pain, nausea, numbness, weakness, headache. Patient does admit to some lower extremity swelling bilaterally this seemed to be getting slightly worse over the past few days but he had a recent increase in his Lasix which has now mid ago way and he is no longer experiencing any significant swelling in his legs. Patient denies history of blood clots. Patient admits to history of heart failure. Patient admits to not wearing his oxygen and he is supposed to as he is typically supposed to be on 2 L at baseline. Related Data Home Medications Medication Instructions Recorded Confirmed aspirin 325 mg tablet,delayed 325 mg PO DAILY 01/05/19 06/30/23 release propylthiouracil 50 mg tablet 50 mg PO BID 05/29/21 06/30/23 losartan 25 mg tablet 25 mg PO DAILY 07/26/22 06/30/23 montelukast 10 mg tablet 10 mg PO HS 07/26/22 06/30/23 torsemide 10 mg tablet 10 mg PO QAM 07/26/22 06/30/23 Allergies Allergy/AdvReac Type Severity Reaction Status Date / Time No Known Allergies Allergy Verified 06/30/23 08:44 Review of Systems Review of Systems: All systems reviewed & are unremarkable except as noted in HPI and below PMFSH Past Medical History Medical History Arthritis of wrist, right, degenerative Bradycardia Chronic obstructive pulmonary disease Cough Dizziness KELLEY (dyspnea on exertion) Fatigue Hyperthyroidism Paroxysmal atrial flutter Pulmonary nodules Restless sleeper Rhinitis Seasonal allergies Severe tricuspid regurgitation Skin cancer SOB (shortness of breath) on exertion Swollen ankles Traumatic arthritis of right ankle Wheezing Surgical History Surgical History H/O hernia repair Family History Family History Father , from aortic aneurysm Family history of rheumatoid arthritis Family history of emphysema Family history of thoracic aortic aneurysm Osteoarthritis COPD (chronic obstructive pulmonary disease) Aortic aneurysm Mother , from pneumonia Family history of osteoarthritis Family history of malignant neoplasm of ovary Lupus COPD (chronic obstructive pulmonary disease) Afib Non Hodgkin's lymphoma Osteoarthritis Social History Social History (Updated 05/12/23 @ 13:40 by Millie Olivo [facility]) Smoking packs per day: 1 Smoking cigarettes per day: 20.0 Years smoked: 48 Smoking pack-years: 48.00 Smoking status: Current every day smoker Tobacco type: cigarettes Second hand tobacco smoke exposure: Yes Alcohol intake: sergio
[2023-07-18 21:30] VITALS: BP 100/56; PULSE 53; RESP 24; TEMP 36.6; O2SAT 100
[2023-07-18 21:35] VITALS: PULSE 51
[2023-07-18 21:36] VITALS: O2SAT 93
--- NOTE | 2023-07-18 21:38 | PC.NURSE ---
Patient denies chest pain at this time
--- NOTE | 2023-07-18 21:43 | ECG_ITS ---
SEE SCANNED COPY FOR CONFIRMED REPORT MTDD
[2023-07-18 21:50] LABS: Lipase 120 U/L (23-300); Magnesium 1.6 mg/dL (1.6-2.3)
[2023-07-18 22:05] LABS: NT Pro B Type Natriuretic Pept 892 pg/mL (19.9-100); Troponin I 0.071 ng/mL (0.000-0.034)
[2023-07-18 22:29] LABS: Appearance Urine Clear (Clear); Bilirubin Urine Negative (Negative); Blood Urine Negative (Negative); Color Urine Yellow (Yellow); Glucose Urine UA Negative (Negative); Ketones Urine Negative (Negative); Leukocyte Esterase Ur Negative LEU/UL (Negative); Nitrate Urine Negative (Negative); Protein Urine Negative (Negative); Specific Grav Ur 1.009 (1.001-1.035); pH Urine 6.5 (5.0-9.0)
[2023-07-18 22:35] VITALS: BP 85/59; PULSE 55; RESP 20; O2SAT 99
[2023-07-18 22:38] LABS: Add Urine Microscopic? NO
[2023-07-18 22:39] LABS: Thyroid Stimulating Hormone Reflex 0.544 uIU/mL (0.465-4.68)
--- NOTE | 2023-07-18 22:39 | PC.NURSE ---
Patient's blood pressure was 85/59. Notified EDP Dr. Azar who VRBO 1L NS bolus.
[2023-07-18] MEDS: SODIUM CHLORIDE 0.9% IV 1,000 ML 999 ML IV CONT (22:41)
[2023-07-18 23:05] VITALS: BP 101/56; PULSE 60; RESP 19; O2SAT 96
--- NOTE | 2023-07-18 23:52 | ECG_ITS ---
SEE SCANNED COPY FOR CONFIRMED REPORT MTDD
[2023-07-18 23:58] VITALS: BP 93/64; PULSE 64; RESP 20; O2SAT 100
[2023-07-19 00:16] VITALS: BP 102/66; PULSE 61; RESP 24; O2SAT 99
[2023-07-19 00:23] LABS: Troponin I 0.075 ng/mL (0.000-0.034)
== END 2023-07-19 01:02 | disposition home or self-care (01) ==
PROVIDERS: Emergency Provider Student in an Organized Health Care Education/Training Program; PCP Internal Medicine
DX: I48.91 Unspecified atrial fibrillation (principal); E87.1 Hypo-osmolality and hyponatremia; R79.89 Other specified abnormal findings of blood chemistry; R07.9 Chest pain, unspecified; J44.9 Chronic obstructive pulmonary disease, unspecified; I48.92 Unspecified atrial flutter; I07.1 Rheumatic tricuspid insufficiency; I50.9 Heart failure, unspecified; E05.90 Thyrotoxicosis, unspecified without thyrotoxic crisis or storm; M19.171 Post-traumatic osteoarthritis, right ankle and foot; M19.031 Primary osteoarthritis, right wrist; F17.210 Nicotine dependence, cigarettes, uncomplicated; Z92.3 Personal history of irradiation; Z85.828 Personal history of other malignant neoplasm of skin; Z85.118 Personal history of other malignant neoplasm of bronchus and lung; Z79.82 Long term (current) use of aspirin; Z79.899 Other long term (current) drug therapy
CPT/HCPCS: 36415; 71045; 80053; 81003; 83690; 83735; 83880; 84443; 84484; 85025; 85610; 85730; 93005; 96360; 99284; J7030

== ENCOUNTER 2023-07-21 09:00 | Outpatient (CLI) | payer MEDICARE, MEDICAID, SELFPAY ==
[2023-07-21 10:19] LABS: Anion Gap 7 mmol/L (4-12); Blood Urea Nitrogen 11 mg/dL (7-18); Carbon Dioxide 36 mmol/L (21-32); Chloride 95 mmol/L (98-108); Estimated Glomerular Filt Rate > 60; Glucose 96 mg/dL (70-99); NT Pro B Type Natriuretic Pept 873 pg/mL (0-125); Osmolality Calculated 285 mOsm/kg (285-295); Potassium 3.6 mmol/L (3.5-5.1); Sodium 138 mmol/L (136-145)
== END 2023-07-21 09:01 | disposition home or self-care (01) ==
LOC: CHSLAB 09:01
PROVIDERS: PCP Internal Medicine; Visit Provider Nurse Practitioner Family
DX: E87.1 Hypo-osmolality and hyponatremia (principal); I50.32 Chronic diastolic (congestive) heart failure
CPT/HCPCS: 36415; 80048; 83880

== ENCOUNTER 2023-07-27 08:47 | Outpatient (CLI) | payer MEDICARE, MEDICAID, SELFPAY ==
[2023-07-27 09:32] LABS: Alanine Aminotransferase 40 U/L (16-63); Albumin Level 3.3 g/dL (3.4-5.0); Alkaline Phosphatase 55 U/L (46-116); Anion Gap 5 mmol/L (4-12); Aspartate Amino Transferase 19 U/L (15-37); Bilirubin,Total 0.5 mg/dL (0.00-1.00); Blood Urea Nitrogen 9 mg/dL (7-18); Carbon Dioxide 36 mmol/L (21-32); Chloride 100 mmol/L (98-108); Estimated Glomerular Filt Rate > 60; Glucose 79 mg/dL (70-99); NT Pro B Type Natriuretic Pept 992 pg/mL (0-125); Osmolality Calculated 289 mOsm/kg (285-295); Potassium 3.4 mmol/L (3.5-5.1); Sodium 141 mmol/L (136-145)
== END 2023-07-27 08:48 | disposition home or self-care (01) ==
PROVIDERS: PCP Internal Medicine; Visit Provider Nurse Practitioner Family
DX: E87.1 Hypo-osmolality and hyponatremia (principal); I50.32 Chronic diastolic (congestive) heart failure
CPT/HCPCS: 36415; 80053; 83880

== ENCOUNTER 2023-08-03 10:24 | Outpatient (CLI) | payer MEDICARE, SELFPAY ==
--- NOTE | ~2023-08-03 | CT_ITS ---
Clinical Indication: Lung cancer CT Scan of the Chest with Contrast: Technique: Contiguous sections were acquired throughout the chest after intravenous administration of 75 cc of Omnipaque 350. Dose reduction technique was used on this scan by utilizing automated exposu re control and iterative reconstruction technique. The dose-length product (DLP) was 249.52 mGy-cm. COMPARISON: 05/03/2023 Findings: There is no evidence of any significant mediastinal, hilar or axillary lymphadenopathy. Calcified med iastinal and right hilar lymph nodes are present. There is no filling defect in the pulmonary arteria l tree to suggest pulmonary embolus. There is no evidence of aortic dissection or aneurysm. There is no evidence of pleural or pericardial effusion. Several calcified pulmonary granulomas are present. Left apical nodule is slightly less conspicuous a s compared to prior exam, with increased surrounding groundglass opacity. Images through the upper abdomen reveal calcified splenic and hepatic granulomas. Impression: Slightly less conspicuous left apical nodule, with increased surrounding groundglass opacity. Finding s could reflect post therapy/post radiation change. Evidence of prior granulomas disease. Reviewed, dictated and finalized at [facility]. Impression: Slightly less conspicuous left apical nodule, with increased surrounding ground glass opacity. Findings could reflect post therapy/post radiation change. Evidence of prior granulomas disease.
== END 2023-08-03 10:25 | disposition home or self-care (01) ==
PROVIDERS: PCP Internal Medicine; Visit Provider Radiology Radiation Oncology
DX: C34.90 Malignant neoplasm of unspecified part of unspecified bronchus or lung (principal)
CPT/HCPCS: 71260; Q9967

== ENCOUNTER 2023-08-05 09:07 | Outpatient (CLI) | payer MEDICARE, MEDICAID, SELFPAY ==
[2023-08-05 13:58] LABS: Alanine Aminotransferase 28 U/L (16-63); Albumin Level 3.4 g/dL (3.4-5.0); Alkaline Phosphatase 67 U/L (46-116); Anion Gap 7 mmol/L (4-12); Aspartate Amino Transferase 14 U/L (15-37); Bilirubin,Total 0.4 mg/dL (0.00-1.00); Blood Urea Nitrogen 6 mg/dL (7-18); Carbon Dioxide 33 mmol/L (21-32); Chloride 100 mmol/L (98-108); Estimated Glomerular Filt Rate > 60; Glucose 82 mg/dL (70-99); NT Pro B Type Natriuretic Pept 841 pg/mL (0-125); Osmolality Calculated 286 mOsm/kg (285-295); Sodium 140 mmol/L (136-145); Total Protein 6.8 g/dL (6.4-8.2)
== END 2023-08-05 09:08 | disposition home or self-care (01) ==
LOC: CHSLAB 09:09
PROVIDERS: PCP Internal Medicine; Visit Provider Nurse Practitioner Family
DX: E87.1 Hypo-osmolality and hyponatremia (principal); R60.0 Localized edema; R06.09 Other forms of dyspnea; I50.30 Unspecified diastolic (congestive) heart failure
CPT/HCPCS: 36415; 80053; 83880

== ENCOUNTER 2023-08-09 09:45 | Outpatient (CLI) | payer MEDICARE, MEDICAID, SELFPAY ==
--- NOTE | 2023-08-09 09:52 | ECHO_ITS ---
Patient Info Name: Nathaniel Bowen Age: 63 years : 1960 Gender: Male Ht: 73 in Wt: 204 lbs BSA: 2.20 m2 HR: 55 bpm BP: 125 / 69 mmHg Technical Quality: Fair Exam Date: 08/09/2023 10:25 AM Exam Location: Echo Lab Patient Status: Outpatient Admit Date: 08/09/2023 Staff Ordering Physician: Vamshi Harris DO Formulation Chemist: Dick Silveira RDCS Attending Provider: Vamshi Harris DO Referring Physician: Steven MURCIA; Exam Type: CA echo dop color flow w con Study Info Indications R06.09 - Other forms of dyspnea Complete two-dimensional, color flow and Doppler transthoracic echocardiogram is performed. Summary 1. Complete two-dimensional, color flow and Doppler transthoracic echocardiogram is performed. 2. Left ventricular chamber dimension is normal. 3. Left ventricular systolic function is normal, estimated at 65-70%. 4. The left ventricular diastolic function is grade I diastolic dysfunction. 5. E/e' 9 is minimally elevated. 6. Left atrial chamber dimension is mildly enlarged. 7. Right atrial chamber dimension is moderately enlarged. 8. There is mild aortic valve sclerosis. 9. There is trace aortic valve regurgitation. 10. There is trace mitral valve regurgitation. 11. There is mild to moderate tricuspid valve regurgitation. 12. Severe pulmonary hypertension, estimated pulmonary arterial systolic pressure is 75 mmHg. 13. There is trace pulmonic regurgitation. Left Ventricle E/e' 9 is minimally elevated. Left ventricular chamber dimension is normal. Left ventricular systolic function is normal, estimated at 65-70%. The left ventricular diastolic function is grade I diastolic dysfunction. Right Ventricle Right ventricular systolic function is normal and with normal TAPSE 2.7 cm. Right ventricular chamber dimension is normal. Left Atria Left atrial chamber dimension is mildly enlarged. Right Atria Right atrial chamber dimension is moderately enlarged. Aortic Valve The aortic valve is trileaflet. There is mild aortic valve sclerosis. There is no aortic valve stenosis. There is trace aortic valve regurgitation. Pulmonic Valve There is trace pulmonic regurgitation. Mitral Valve There is no mitral valve stenosis. There is trace mitral valve regurgitation. Tricuspid Valve There is mild to moderate tricuspid valve regurgitation. Severe pulmonary hypertension, estimated pulmonary arterial systolic pressure is 75 mmHg. Pericardium/Pleural There is no pericardial effusion. Inferior Vena Cava Normal inferior vena cava with >50% collapse upon inspiration consistent with normal right atrial pressure, 5 mmHg. Aorta The aortic root size at the sinus of Valsalva is normal. Left Ventricular Outflow Tract Name Value Normal LVOT 2D LVOT Diameter 2.05 cm LVOT Doppler LVOT Peak Gradient 9 mmHg LVOT Mean Gradient 4 mmHg LVOT VTI 30.54 cm LVOT VTI/AV VTI Ratio 1.15 LVOT Stroke Volume 100.71 ml LVOT CO 5.57 l/min LVOT CI 2.54 L/min/m2 Pulmonic Valve
== END 2023-08-09 09:46 | disposition home or self-care (01) ==
LOC: ANHCARD 09:46
PROVIDERS: PCP Internal Medicine; Visit Provider Internal Medicine Cardiovascular Disease
DX: R06.09 Other forms of dyspnea (principal); I51.89 Other ill-defined heart diseases; I35.8 Other nonrheumatic aortic valve disorders; I36.1 Nonrheumatic tricuspid (valve) insufficiency; I27.20 Pulmonary hypertension, unspecified
CPT/HCPCS: 93306; C8929

== ENCOUNTER 2023-09-02 13:46 | Outpatient (CLI) | payer MEDICARE, MEDICAID, SELFPAY ==
[2023-09-02 15:10] LABS: Alanine Aminotransferase 23 U/L (16-63); Albumin Level 3.5 g/dL (3.4-5.0); Alkaline Phosphatase 71 U/L (46-116); Anion Gap 7 mmol/L (4-12); Aspartate Amino Transferase 19 U/L (15-37); Bilirubin,Total 0.3 mg/dL (0.00-1.00); Blood Urea Nitrogen 6 mg/dL (7-18); Calcium 8.8 mg/dL (8.5-10.1); Carbon Dioxide 33 mmol/L (21-32); Chloride 95 mmol/L (98-108); Estimated Glomerular Filt Rate > 60; Glucose 81 mg/dL (70-99); NT Pro B Type Natriuretic Pept 364 pg/mL (0-125); Osmolality Calculated 276 mOsm/kg (285-295); Potassium 4.3 mmol/L (3.5-5.1); Sodium 135 mmol/L (136-145); Total Protein 6.8 g/dL (6.4-8.2)
== END 2023-09-02 13:47 | disposition home or self-care (01) ==
LOC: CHSLAB 13:49
PROVIDERS: PCP Internal Medicine; Visit Provider Nurse Practitioner Family
DX: I50.32 Chronic diastolic (congestive) heart failure (principal)
CPT/HCPCS: 36415; 80053; 83880

== ENCOUNTER 2023-10-11 13:56 | Outpatient (CLI) | payer MEDICARE, MEDICAID, SELFPAY ==
--- NOTE | 2023-10-11 14:03 | ECG_ITS ---
Test Date: 2023-10-11 14:11:24 Measurements Intervals [place] Rate: 46 P: 76 IA: 136 QRS: 78 QRSD: 86 T: 78 QT: 446 QTc: 391 Interpretive Statements SINUS BRADYCARDIA TALL T-WAVES, SUGGESTS HYPERKALEMIA No previous ECG available for comparison Electronically Signed On 10-11-2023 15:21:44 CDT by Ana Gomez M.D.
== END 2023-10-11 13:57 | disposition home or self-care (01) ==
LOC: CHSCARD 13:58
PROVIDERS: PCP Internal Medicine; Visit Provider Internal Medicine Cardiovascular Disease
DX: I48.92 Unspecified atrial flutter (principal); R00.1 Bradycardia, unspecified
CPT/HCPCS: 93005

== ENCOUNTER 2023-11-21 10:37 | Outpatient (CLI) | payer MEDICARE, MEDICAID, SELFPAY ==
[2023-11-21 10:52] LABS: Hematocrit 41.9 % (37.0-46.0); Hemoglobin 14.5 g/dL (12.4-15.3); Mean Corpuscular HGB Conc 34.6 g/dL (32-36); Mean Corpuscular Hemoglobin 34.3 pg (27.0-31.0); Mean Corpuscular Volume 99.1 fL (78.0-102.0); Mean Platelet Volume 9.6 fl (8.7-11.0); Platelet Count Result 173 K/mm3 (150-420); Red Blood Count 4.23 M/mm3 (4.70-6.10); Red Cell Distribution Width 12.6 % (11.6-14.4); White Blood Count 8.1 K/mm3 (4.8-10.8)
[2023-11-21 10:53] LABS: Add Urine Microscopic? NO; Appearance Urine Clear (Clear); Bilirubin Urine Negative (Negative); Blood Urine Negative (Negative); Color Urine Light Yellow (Yellow); Glucose Urine UA Negative (Negative); Ketones Urine Negative (Negative); Leukocyte Esterase Ur Negative (Negative); Nitrate Urine Negative (Negative); Protein Urine Negative (Negative); Specific Grav Ur <= 1.005 (1.010-1.020); Urobilinogen Urine 0.2 mg/dL (0.2-1.0)
[2023-11-21 11:53] LABS: Alanine Aminotransferase 37 U/L (16-63); Albumin Level 3.4 g/dL (3.4-5.0); Alkaline Phosphatase 95 U/L (46-116); Anion Gap 1 mmol/L (4-12); Aspartate Amino Transferase 30 U/L (15-37); Bilirubin,Total 0.4 mg/dL (0.00-1.00); Blood Urea Nitrogen 4 mg/dL (7-18); Carbon Dioxide 40 mmol/L (21-32); Chloride 90 mmol/L (98-108); Cholesterol 146 mg/dL (0-200); Estimated Glomerular Filt Rate > 60; Glucose 76 mg/dL (70-99); HDL Direct 84 mg/dL (40-60); LDL Cholesterol Calculated 52 mg/dL (<130); Osmolality Calculated 267 mOsm/kg (285-295); Potassium 4.2 mmol/L (3.5-5.1); Sodium 131 mmol/L (136-145); Thyroid Stimulating Hormone 0.74 uIU/mL (0.36-3.74); Triglycerides 48 mg/dL (0-150)
== END 2023-11-21 10:38 | disposition home or self-care (01) ==
LOC: CHSLAB 10:40
PROVIDERS: PCP Internal Medicine; Visit Provider Nurse Practitioner Family
DX: I10 Essential (primary) hypertension (principal); E87.1 Hypo-osmolality and hyponatremia; J44.9 Chronic obstructive pulmonary disease, unspecified
CPT/HCPCS: 36415; 80053; 80061; 81003; 84443; 85027

== ENCOUNTER 2023-12-09 08:16 | Outpatient (CLI) | payer MEDICARE, MEDICAID, SELFPAY ==
[2023-12-09 09:16] LABS: Anion Gap 8 mmol/L (4-12); Blood Urea Nitrogen 8 mg/dL (7-18); Calcium 9.5 mg/dL (8.5-10.1); Carbon Dioxide 36 mmol/L (21-32); Chloride 90 mmol/L (98-108); Estimated Glomerular Filt Rate > 60; Glucose 102 mg/dL (70-99); Osmolality Calculated 276 mOsm/kg (285-295); Potassium 4.1 mmol/L (3.5-5.1); Sodium 134 mmol/L (136-145)
== END 2023-12-09 08:17 | disposition home or self-care (01) ==
PROVIDERS: PCP Internal Medicine; Visit Provider Nurse Practitioner Family
DX: E87.1 Hypo-osmolality and hyponatremia (principal)
CPT/HCPCS: 36415; 80048

== ENCOUNTER 2023-12-21 09:32 | Outpatient (CLI) | payer MEDICARE, MEDICAID, SELFPAY ==
--- NOTE | ~2023-12-21 | CT_ITS ---
Clinical Indication: Lung cancer CT Scan of the Chest with Contrast: Technique: Contiguous sections were acquired throughout the chest after intravenous administration of 75 cc of Omnipaque 350. Dose reduction technique was used on this scan by utilizing automated exposu re control and iterative reconstruction technique. The dose-length product (DLP) was 310.75 mGy-cm. COMPARISON: 08/03/2023 Findings: There is no evidence of any significant mediastinal, hilar or axillary lymphadenopathy. Stable calcif ied mediastinal lymph nodes. There is no filling defect in the pulmonary arterial tree to suggest pul monary embolus. There is no evidence of aortic dissection or aneurysm. There is no evidence of pleural or pericardial effusion. Stable semisolid lesion in the left lung apex, which could reflect postradiation change/treated disea se. No new or enlarging pulmonary nodule evident. Images through the upper abdomen reveal calcified hepatic and splenic granulomas. Impression: Stable suspected postradiation change/treated disease in the left lung apex. No enlarging pulmonary n odule evident. Reviewed, dictated and finalized at location . Impression: Stable suspected postradiation change/treated disease in the left lung apex. No enlarging pulmonary nodule evident.
== END 2023-12-21 09:33 | disposition home or self-care (01) ==
LOC: ANHIMG 09:32
PROVIDERS: PCP Internal Medicine; Visit Provider Radiology Radiation Oncology
DX: C34.90 Malignant neoplasm of unspecified part of unspecified bronchus or lung (principal)
CPT/HCPCS: 71260; Q9967

== ENCOUNTER 2023-12-28 15:11 | Outpatient (CLI) | payer MEDICARE, MEDICAID, SELFPAY ==
--- NOTE | ~2023-12-28 | XR_ITS ---
EXAMINATION: XR chest 2V 12/28/2023 15:50 INDICATION: Productive cough and shortness of breath PROCEDURE: 2 view chest COMPARISON: Comparison to multiple prior studies sequentially, with oldest reviewed study dated 08/2023. FINDINGS: The lungs are clear. There is calcified mediastinal lymph nodes, consistent with chronic gr anulomatous disease. The cardiomediastinal silhouette is within normal limits. There are no pleural effusions. There is no pneumothorax suspected. IMPRESSION: 1: NO ACUTE CARDIOPULMONARY DISEASE. Reviewed, dictated and finalized at location B. 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
[2023-12-28 15:44] LABS: Hematocrit 42.8 % (37.0-46.0); Hemoglobin 14.5 g/dL (12.4-15.3); Mean Corpuscular HGB Conc 33.9 g/dL (32-36); Mean Corpuscular Hemoglobin 34.3 pg (27.0-31.0); Mean Corpuscular Volume 101.2 fL (78.0-102.0); Platelet Count Result 109 K/mm3 (150-420); Red Blood Count 4.23 M/mm3 (4.70-6.10); Red Cell Distribution Width 13.4 % (11.6-14.4); White Blood Count 5.8 K/mm3 (4.8-10.8)
[2023-12-28 15:56] LABS: Add Urine Microscopic? NO; Appearance Urine Clear (Clear); Bilirubin Urine Negative (Negative); Blood Urine Negative (Negative); Color Urine Light Yellow (Yellow); Glucose Urine UA Negative (Negative); Ketones Urine Negative (Negative); Leukocyte Esterase Ur Negative (Negative); Nitrate Urine Negative (Negative); Protein Urine Negative (Negative); Specific Grav Ur <= 1.005 (1.010-1.020); Urobilinogen Urine 0.2 mg/dL (0.2-1.0); pH Urine 5.5 (5.0-8.0)
[2023-12-28 16:13] LABS: Alanine Aminotransferase 104 U/L (16-63); Albumin Level 3.6 g/dL (3.4-5.0); Alkaline Phosphatase 98 U/L (46-116); Anion Gap 4 mmol/L (4-12); Aspartate Amino Transferase 94 U/L (15-37); Bilirubin,Total 0.7 mg/dL (0.00-1.00); Blood Urea Nitrogen 5 mg/dL (7-18); Calcium 9.2 mg/dL (8.5-10.1); Carbon Dioxide 37 mmol/L (21-32); Chloride 91 mmol/L (98-108); Estimated Glomerular Filt Rate > 60; Glucose 79 mg/dL (70-99); Osmolality Calculated 270 mOsm/kg (285-295); Potassium 4.9 mmol/L (3.5-5.1); Sodium 132 mmol/L (136-145); Total Protein 7.3 g/dL (6.4-8.2)
== END 2023-12-28 15:12 | disposition home or self-care (01) ==
PROVIDERS: PCP Internal Medicine; Visit Provider Nurse Practitioner Family
DX: R05.8 Other specified cough (principal); R06.02 Shortness of breath; R53.83 Other fatigue
CPT/HCPCS: 36415; 71046; 80053; 81003; 85027; 85055

== ENCOUNTER 2024-01-20 09:19 | Outpatient (CLI) | payer MEDICARE, SELFPAY ==
[2024-01-20 10:10] LABS: Alanine Aminotransferase 39 U/L (16-63); Albumin Level 3.3 g/dL (3.4-5.0); Alkaline Phosphatase 68 U/L (46-116); Anion Gap 6 mmol/L (4-12); Aspartate Amino Transferase 18 U/L (15-37); Bilirubin,Total 0.6 mg/dL (0.00-1.00); Blood Urea Nitrogen 9 mg/dL (7-18); Calcium 9.1 mg/dL (8.5-10.1); Carbon Dioxide 33 mmol/L (21-32); Chloride 99 mmol/L (98-108); Estimated Glomerular Filt Rate > 60; Glucose 88 mg/dL (70-99); Osmolality Calculated 283 mOsm/kg (285-295); Potassium 4.3 mmol/L (3.5-5.1); Sodium 138 mmol/L (136-145); Total Protein 6.5 g/dL (6.4-8.2)
[2024-01-22 07:08] LABS: Sex Hormone Binding Globulin 77 nmol/L (22-77)
[2024-01-24 15:19] LABS: Testosterone Free 72.9 pg/mL (35.0-155.0); Testosterone Total 740 ng/dL (250-1100)
[2024-01-25 03:19] LABS: LH 6.6 mIU/mL (1.6-15.2)
== END 2024-01-20 09:20 | disposition home or self-care (01) ==
PROVIDERS: PCP Internal Medicine; Visit Provider Nurse Practitioner Family
DX: R74.8 Abnormal levels of other serum enzymes (principal); R53.83 Other fatigue
CPT/HCPCS: 36415; 80053; 83002; 84270; 84402; 84403

== ENCOUNTER 2024-04-20 18:33 | Emergency (ER) | payer MEDICARE, MEDICAID, SELFPAY ==
[2024-04-20] VITALS (9 sets, daily range): BP systolic 90–152; BP diastolic 65–79; PULSE 85; RESP 16; TEMP 36.9; O2SAT 95–98
--- NOTE | 2024-04-20 18:34 | ED.URI ---
HPI - URI/Sore Throat General Chief Complaint: Shortness of Breath/Dyspnea Stated Complaint: congestion Time Seen by Provider: 04/20/24 18:33 Source: patient and family Mode of arrival: EMS Limitations: no limitations History of Present Illness HPI Narrative: patient is a 63-year-old male with known lung cancer here with a cough and congestion for the past week. He was given a DuoNeb in the ambulance and he had an SVT bout that resolved on its own. patient uses home oxygen 24 hours a day at 4 L. Nasal cannula. MD elicited complaint: cough and nasal congestion Pertinent past history: other ( Lung cancer and COPD) Onset (ago): week(s) ( 1) Consistency: constant and progressively worsening Severity: moderate Pain scale (0-10): 3 Description of mucous: yellow and green Able to tolerate fluids by mouth: Yes Exacerbating factors: nothing Relieving factors: nothing Context: other ( patient has cough and congestion with shortness of breath and here for evaluation; he had a bout of SVT with EMS that resolved on its own) Associated symptoms: nasal congestion, cough and shortness of breath Treatments prior to arrival: none Related Data Home Medications ?Medication ?Instructions ?Recorded ?Confirmed ?Last Taken ?Type aspirin 325 mg tablet,delayed 325 mg PO DAILY 01/05/19 04/12/24 05/18/22 History release propylthiouracil 50 mg tablet 50 mg PO BID 05/29/21 04/20/24 Unknown History montelukast 10 mg tablet 10 mg PO HS 07/26/22 04/12/24 Unknown History torsemide 10 mg tablet 10 mg PO QAM 07/26/22 04/20/24 Unknown History ensifentrine 3 mg/2.5 mL 2.5 ml inhalation QAM AND QPM 02/10/24 04/12/24 Unknown History suspension for nebulization (Ohtuvayre) losartan 25 mg tablet 50 mg PO DAILY 04/12/24 04/12/24 Unknown History Allergies Allergy/AdvReac Type Severity Reaction Status Date / Time No Known Allergies Allergy Verified 04/20/24 19:21 Review of Systems Review of Systems: All systems reviewed & are unremarkable except as noted in HPI and below Constitutional: Constitutional: Reports no additional constitutional complaints Eyes: Eyes: Reports no additional eye complaints ENT: Reports system reviewed and no additional complaints, except as documented Cardiovascular: Cardiovascular: Reports no additional cardiovascular complaints Respiratory: Respiratory: Reports no additional respiratory complaints Gastrointestinal: Gastrointestinal: Reports no additional gastrointestinal complaints Genitourinary: Genitourinary: Reports no additional male genitourinary complaints Musculoskeletal: Musculoskeletal: Reports no additional musculoskeletal complaints Integumentary/Breasts: Skin/Breast: Reports system reviewed and no additional complaints, except as docu Neurologic: Reports system reviewed and no additional complaints, except as documented Psychiatric: Psychiatric: Reports no additional psychiatric complaints Endocrine: Endocrine: Reports no additional endocrine complaints Hematologic/Lymphatic: Hematologic/Lymphatic: Reports no additional hematologic/lymphatic complaints Allergic/Immunologic: Allergic/Immunologic: Reports no additional allergic/immunologic complaints PMFSH Past Medical History Medical History Pulmonary nodules Fatigue Restless sleeper Swollen ankles Wheezing Cough Skin cancer Seasonal allergies Rhinitis SOB (shortness of breath) on exertion Arthritis of wrist, right, degenerative Traumatic arthritis of right ankle Bradycardia Chronic obstructive pulmonary disease KELLEY (dyspnea on exertion) Dizziness Hyperthyroidism Paroxysmal atrial flutter Severe tricuspid regurgitation Surgical History Surgical History H/O hernia repair Family History Family History Father , from aortic aneurysm Family history of rheumatoid arthritis Family history of emphysema Family history of thoracic aortic aneurysm Osteoarthritis COPD (chronic obstructive pulmonary disease) Aortic aneurysm Mother , from pneumonia Family history of osteoarthritis Family history of malignant neoplasm of ovary Lupus COPD (chronic obstructive pulmonary disease) Afib Non Hodgkin's lymphoma Osteoarthritis Social History Social History Smoking packs per day: 1 Smoking cigarettes per day: 20.0 Years smoked: 48 Smoking pack-years: 48.00 Smoking status: Current every day smoker Tobacco type: cigarettes Second hand tobacco smoke exposure: Yes Alcohol intake: current Drinks per week: 35 Alcohol use details: Frequent Do You Feel Safe in your Home?: Yes Lack of Transportation: No Lack of Food: Never True Current Housing: I Have Housing Concerned About Future Housing: YES Difficulty Paying Gas/Electric Bills: YES Difficulty Paying for Meds: No Currently Unemployed: No Education: Grade School Difficulty w/ Childcare or Family Care: No Spiritual care concerns: No Exam Const: General: healthy appearing Nutritional Appearance: well nourished Orientation/consciousness: patient oriented x3 Limitations: no limitations HENMT: Head: normal to inspection Ears: external ears normal Face/Nose/Sinus: Normal external nose present Eyes: Conjunctivae: conjunctivae normal Pupils: Equal, round and reactive pupils present EOM: EOMs intact bilaterally Neck: Neck: normal visual inspection Chest: Chest palpation & inspection: normal inspection of the chest Resp: Effort & Inspection: normal respiratory effort and not labored Auscultation: clear to auscultation bilaterally, no crackles, no rales, rhonchi, no wheezes, breath sounds present and diminished lung sounds ( Bilateral /diffuse) Cardio: Rate: regular rate Rhythm: regular rhythm Heart sounds: no murmurs GI: Inspection: non-distended GI Palp: Yes Soft to palpation and No Tenderness to palpation present (GI) Auscultation: normal bowel sounds : General: Yes bladder normal to palpation Back/Spine/Pelvis: Back: no CVA tenderness Skin: General skin exam: normal color Rashes: no rashes Wounds: no wounds Neuro: General: patient oriented x3 Cranial nerves: Yes Nystagmus not present Speech: normal speech Extrem: General: normal to inspection Psych: Mental Status: mental status grossly normal Affect: normal affect Attitude: cooperative MDM - URI/Sore Throat MDM Narrative Medical decision making narrative: patient is a 63-year-old male with known lung cancer with hypoxemia and home O2 having cough and congestion and shortness of breath. We will do a pulmonary workup at this time. Lab Data Attestation: I reviewed the patient's lab results. Lab results narrative: see labs on the chart Imaging Data Attestation: I personally reviewed and interpreted this imaging study as follows: Radiologist's impression: Chest x-ray shows right lower lobe pneumonia Discharge Plan Discharge Clinical Impression: Paroxysmal SVT (supraventricular tachycardia) Community acquired pneumonia Qualifiers: Laterality: right Lung location: lower lobe of lung Qualified Code(s): J18.9 - Pneumonia, unspecified organism Patient Disposition: Home, Self-Care Condition: Stable Instructions: Antibiotic Form, Community Acquired Pneumonia (ED) Patient Language: Georgian Prescriptions: New levofloxacin 750 mg tablet 750 mg PO DAILY 5 Days Qty: 5 0RF prednisone 20 mg tablet 40 mg PO DAILY 3 Days Qty: 6 0RF No Action montelukast 10 mg Tablet 10 mg PO HS torsemide 10 mg Tablet 10 mg PO QAM aspirin 325 mg tablet,delayed release (DR/EC) 325 mg PO DAILY propylthiouracil 50 mg tablet 50 mg PO BID Rx Instructions: one and a half every other day, half opposite days (DME) nebulizer accessories Kit See Rx Instructions .Route Qty: 1 0RF Rx Instructions: As directed (DME) nebulizers [facility] See Rx Instructions .Route Qty: 1 0RF Rx Instructions: As directed Ohtuvayre 3 mg/2.5 mL suspension for nebulization 2.5 ml inhalation QAM AND QPM losartan 25 mg tablet 50 mg PO DAILY albuterol sulfate 90 mcg/actuation HFA aerosol inhaler 1 - 2 puff inhalation Q4-6H PRN (Reason: shortness of breath or wheezing) Qty: 8.5 5RF Breztri Aerosphere 160-9-4.8 mcg/actuation HFA aerosol inhaler See Rx Instructions .ROUTE .COMPLEX Qty: 10.7 5RF Dose Instruction: INHALE 2 PUFFS BY MOUTH EVERY MORNING AND EVERY EVENING. RINSE AND SPIT. REPLACES BEVESPI. Rx Instructions: INHALE 2 PUFFS BY MOUTH EVERY MORNING AND EVERY EVENING. RINSE AND SPIT. sildenafil 100 mg tablet See Rx Instructions .ROUTE .COMPLEX Qty: 6 0RF Dose Instruction: TAKE ONE TABLET BY MOUTH DAILY NEEDED 30 MINUTES TO 4 HOURS PRIOR TO SEXUAL ACTIVITY DO NOT TAKE WITH NITROGLYCERIN Rx Instructions: TAKE ONE TABLET BY MOUTH DAILY NEEDED 30 MINUTES TO 4 HOURS PRIOR TO SEXUAL ACTIVITY DO NOT TAKE WITH NITROGLYCERIN sotalol 80 mg tablet See Rx Instructions .ROUTE .COMPLEX Qty: 180 2RF Dose Instruction: TAKE 1 TABLET BY MOUTH TWICE DAILY Rx Instructions: TAKE 1 TABLET BY MOUTH TWICE DAILY Follow-up/Referrals: Christopher Alfaro MD [Primary Care Provider] - Time of Disposition: 20:28
--- NOTE | 2024-04-20 18:42 | PC.NURSE ---
Covid culture sent to lab
[2024-04-20 19:21] LABS: SARS-CoV-2 RNA PCR Negative (Negative)
[2024-04-20 19:24] LABS: Basophils Absolute Auto 0.06 K/mm3 (0.00-0.10); Basophils Percent Auto 0.5 % (0.0-1.0); Eosinophils Absolute Auto 0.15 K/mm3 (0.02-0.50); Eosinophils Percent Auto 1.2 % (1.0-6.0); Hematocrit 45.5 % (37.0-46.0); Hemoglobin 15.5 g/dL (12.4-15.3); Immature Granulocyte Absolute 0.06 K/mm3 (0.00-0.00); Immature Granulocyte Percent A 0.5 % (0.0-0.0); Lymphocytes Percent Auto 11.8 % (18.0-42.0); Mean Corpuscular HGB Conc 34.1 g/dL (32-36); Mean Corpuscular Hemoglobin 34.4 pg (27.0-31.0); Mean Corpuscular Volume 100.9 fL (78.0-102.0); Mean Platelet Volume 9.6 fl (8.7-11.0); Monocytes Percent Auto 7.9 % (2.0-11.0); Neutrophils Absolute Auto 9.94 K/mm3 (1.70-7.20); Neutrophils Percent Auto 78.1 % (50.0-70.0); Platelet Count Result 163 K/mm3 (150-420); Red Blood Count 4.51 M/mm3 (4.70-6.10); Red Cell Distribution Width 13.4 % (11.6-14.4); White Blood Count 12.7 K/mm3 (4.8-10.8)
[2024-04-20 19:26] LABS: Influenza A QL RT-PCR Negative (Negative); Influenza B QL RT-PCR Negative (Negative); RSV RNA, RT-PCR Negative (Negative)
[2024-04-20 19:33] LABS: Add Urine Microscopic? NO; Appearance Urine Clear (Clear); Bilirubin Urine Negative (Negative); Blood Urine Negative (Negative); Color Urine Light Yellow (Yellow); Glucose Urine UA Negative (Negative); Ketones Urine Negative (Negative); Leukocyte Esterase Ur Negative LEU/UL (Negative); Nitrate Urine Negative (Negative); Protein Urine Negative (Negative); Specific Grav Ur <= 1.005 (1.010-1.020); Urobilinogen Urine 0.2 mg/dL (0.2-1.0); pH Urine 6.5 (5.0-8.0)
[2024-04-20 19:42] LABS: Lactic Acid Reflex 1.6 mmol/L (0.4-2.0)
[2024-04-20 19:52] LABS: Alanine Aminotransferase 28 U/L (16-63); Albumin Level 3.4 g/dL (3.4-5.0); Alkaline Phosphatase 101 U/L (46-116); Anion Gap 7 mmol/L (4-12); Aspartate Amino Transferase 15 U/L (15-37); Bilirubin,Total 0.9 mg/dL (0.00-1.00); Blood Urea Nitrogen 6 mg/dL (7-18); Calcium 8.8 mg/dL (8.5-10.1); Carbon Dioxide 33 mmol/L (21-32); Chloride 91 mmol/L (98-108); Estimated CRCL calculation 89 ml/min; Estimated Glomerular Filt Rate > 60; Glucose 83 mg/dL (70-99); Osmolality Calculated 268 mOsm/kg (285-295); Potassium 3.5 mmol/L (3.5-5.1); Sodium 131 mmol/L (136-145); Total Protein 7.8 g/dL (6.4-8.2)
[2024-04-20 19:53] LABS: Troponin I 11.6 ng/L (0.00-60.4)
[2024-04-20] MEDS: levoFLOXacin TAB 500 MG, levoFLOXacin TAB 250 MG 750 MG PO (20:34)
[2024-04-20] MEDS: predniSONE 20 MG TABLET 40 MG PO (20:34)
--- NOTE | 2024-04-22 12:41 | PC.NURSE ---
PRELIMINARY BLOOD CULTURE NO GROWTH TO DATE
== END 2024-04-20 21:05 | disposition home or self-care (01) ==
PROVIDERS: Emergency Provider Emergency Medicine; PCP Internal Medicine
DX: I47.19 Other supraventricular tachycardia (principal); J18.9 Pneumonia, unspecified organism; C34.90 Malignant neoplasm of unspecified part of unspecified bronchus or lung; Z79.899 Other long term (current) drug therapy; Z79.82 Long term (current) use of aspirin; Z87.891 Personal history of nicotine dependence; Z20.822 Contact with and (suspected) exposure to COVID-19
CPT/HCPCS: 36415; 71045; 80053; 81003; 83605; 84484; 85025; 87040; 87637; 99283; A9270; J7512

== ENCOUNTER 2024-06-05 15:11 | Outpatient (CLI) | payer MEDICARE, MEDICAID, SELFPAY ==
--- OUTSIDE RECORDS SUMMARY | 2024-06-05 16:20 | XMS_ITS | Clinical Summary ---
Author Organization [facility] Micheal rene [facility] Address [address] [place] [address] Care Team Providers Care Gastroenterology Teacher Name Role Phone Christopher Alfaro MD Primary Care Provider [phone] Allergies No known active allergies Medications sotaloL 80 mg tablet Take 80 mg by mouth 2 times daily. Active propylthiouraciL 50 mg tablet Take 50 mg by mouth daily. Active montelukast 10 mg tablet Take 10 mg by mouth daily at bedtime. Active aspirin 325 mg tablet Take 325 mg by mouth daily. Active budesonide-glycop yr-formoterol (Breztri Aerosphere) 160-9-4.8 mcg/actuation HFA Aerosol Inhaler Take by inhalation. Active albuterol sulfate 0.63 mg/3 mL solution for nebulization Take 0.63 mg by inhalation one time only. Active albuterol sulfate HFA 90 mcg/actuation aerosol inhaler Take 2 Puffs by inhalation every 6 hours as needed for Shortness of Breath. Active losartan (COZAAR) 25 mg tablet Take 25 mg by mouth daily. Active torsemide (DEMADEX) 10 mg Tablet Take 10 mg by mouth daily. Active traMADoL (ULTRAM) 50 mg tabletIndications :Malignant neoplasm of upper lobe of left lung (CMS/HCC) Take 1 Tablet (50 mg) by mouth every 8 hours as needed for Pain. 60 Tablet 3 Active Active Problems Problem Noted Date Diagnosed Date Squamous cell carcinoma of left lung 06/30/2022 Paroxysmal atrial fibrillation 06/30/2022 Hyperparathyroidism 06/30/2022 COPD (chronic obstructive pulmonary disease) 11/2022 Benign hypertension 06/30/2022 Family History Medical History Relation Name Comments Heart Disease Brother Heart Disease Father Cancer Mother Heart Disease Mother Heart Disease Sister 1 Relation Name Status Comments Brother Father Mother Sister 1 Alive Sister 2 Social History Tobacco Use Types Packs/Day Years Used Date Smoking Tobacco: Every Day Cigarettes Smokeless Tobacco: Never Tobacco Cessation:Ready to Q uit: Not Asked; Counseling Given: Not Answered Alcohol Use Standard Drinks/Week Comments Yes 36 (1 standard drink = 0.6 oz pu re alcohol) Sex and Gender Information Value Date Recorded Sex Assigned at Not on file Legal Sex Male 7:44 AM CDT Gender Identity Not on file Sexual Orientation Not on file Last Filed Vital Signs Vital Sign Reading Time Taken Comments Blood Pressure 110/59 11/05/2022 11:46 AM CDT Pulse 50 11/05/2022 11:46 AM CDT Temperature 36.6 C (97.8 F) 11/05/2022 11:46 AM CDT Respiratory Rate 18 11/05/2022 11:46 AM CDT Oxygen Saturation 97% 11/05/2022 11:46 AM CDT Inhaled Oxygen Concentration - - Weight 85.8 kg (189 lb 3.2 oz) 11/05/2022 11:46 AM CDT Height 188 cm (6' 2 ) 06/30/2022 11:23 AM CDT Body Mass Index 24.29 06/30/2022 11:23 AM CDT Plan of Treatment Health Maintenance Due Date Last Done Comments DTAP/TDAP/TD VACCINES (1 - Tdap) 1977 PNEUMOCOCCAL VACCINE 50+ YEARS (1 of 2 - PCV) 06/05/18 78 COLORECTAL SCREENING 06/06/2003 Colorectal Cancer Screening 06/06/2003 FIT-DNA Q 3 years 06/06/2003 FIT/FOBT Q 1 year 06/06/2003 Flex Sig/CT Colonography Q 5 years 06/06/2003 ZOSTER VACCINE (1 of 2) 2008 RSV VACCINE (60+ or ) (1 - Risk 60-74 years 1-dose series) 2018 INFLUENZA VACCINE (#1) 2023 Insurance MEDICAID [address] [place] [id number] [place] [address] MEDICAID Care Teams Gastroenterology Teacher Relationship Specialty Start Date End Date Christopher Alfaro MD [address] [place] [id number] PCP - General Internal Medicine 06/03/22
== END 2024-06-05 15:12 | disposition home or self-care (01) ==
PROVIDERS: PCP Nurse Practitioner Family; Visit Provider Nurse Practitioner Family
DX: M25.562 Pain in left knee (principal); M25.561 Pain in right knee; M79.89 Other specified soft tissue disorders
CPT/HCPCS: 73562

== ENCOUNTER 2024-06-26 09:16 | Outpatient (CLI) | payer MEDICARE, MEDICAID, SELFPAY ==
--- NOTE | ~2024-06-26 | CT_ITS ---
Clinical Indication: Lung cancer CT Scan of the Chest with Contrast: Technique: Contiguous sections were acquired throughout the chest after intravenous administration of 75 cc of Omnipaque 350. Dose reduction technique was used on this scan by utilizing automated exposu re control and iterative reconstruction technique. The dose-length product (DLP) was 447.95 mGy-cm. COMPARISON: 12/21/2023 Findings: Stable small shotty mediastinal lymph nodes. Stable calcified right paratracheal and subcarinal lymph nodes.. There is no filling defect in the pulmonary arterial tree to suggest pulmonary embolus. Ther e is no evidence of aortic dissection or aneurysm. There is no evidence of pleural or pericardial effusion. Stable irregular somewhat groundglass/pseudocavitary lesion in the left upper lobe. Images through the upper abdomen reveal diffuse hepatic steatosis and calcified hepatic and splenic g ranulomas. Impression: Stable groundglass/pseudocavitary lesion left upper lobe. This could reflect posttreatment change or possibly bronchovascular cell carcinoma. Diffuse hepatic steatosis. Evidence of prior granulomatous disease. Reviewed, dictated and finalized at location . Impression: Stable groundglass/pseudocavitary lesion left upper lobe. This could reflect po sttreatment change or possibly bronchovascular cell carcinoma. Diffuse hepatic steatosis. Evidence of prior granulomatous disease.
[2024-06-26 09:44] LABS: Estimated Glomerular Filt Rate > 60
--- OUTSIDE RECORDS SUMMARY | 2024-06-26 09:46 | XMS_ITS | Clinical Summary ---
Author Organization [facility] Micheal rene [facility] Address [address] [place] [address] Care Team Providers Care Mud Analysis Supervisor Name Role Phone Christopher Alfaro MD Primary Care Provider [phone] Allergies No known active allergies Medications sotaloL [...] INFLUENZA VACCINE (#1) 2023 Insurance MEDICAID [address] [place] [id number] [place] [address] MEDICAID Care Teams Mud Analysis Supervisor Relationship Specialty Start Date End Date Christopher Alfaro MD [address] [place] [phone] PCP - General Internal Medicine 06/03/22
== END 2024-06-26 09:17 | disposition home or self-care (01) ==
LOC: ANHIMG 09:16
PROVIDERS: PCP Nurse Practitioner Family; Visit Provider Radiology Radiation Oncology
DX: C34.90 Malignant neoplasm of unspecified part of unspecified bronchus or lung (principal); K76.0 Fatty (change of) liver, not elsewhere classified
CPT/HCPCS: 71260; Q9967

== ENCOUNTER 2024-07-30 15:32 | Outpatient (CLI) | payer MEDICARE, MEDICAID, SELFPAY ==
--- NOTE | ~2024-07-30 | CT_ITS ---
CT brain wo con Ordering provider: Lidya Kaba, SAT ACT INSTRUCTOR History: 64 years Male with . left eye trauma contusion head injury . Comparison: October 09, 2012 Technique: CT of the head without contrast. Radiation reduction technique utilized. The dose-length p roduct was 681 mGy-cm. FINDINGS: BRAIN PARENCHYMA AND CSF SPACES: Mild leukoaraiosis and diffuse cortical atrophy. Mild atheromatous d isease. No midline shift, mass effect or hemorrhage. The brain parenchyma and CSF spaces are otherwi se normal. VISUALIZED PARANASAL SINUSES: Fracture of the anterior and lateral wall of the left maxillary sinus i s seen. No other fractures seen. Left maxillary sinus disease is noted. Old fracture in the medial wall of the right orbit is noted. MASTOIDS: Well aerated. BONES: The bones appear intact. SOFT TISSUES: Visualized nasopharynx is normal.Air bubbles seen around the left orbit and anterior t o the left maxillary sinus. Small air bubbles seen in the intraorbital areas superiorly on the left a nd inferiorly medially on the left. Superficial soft tissues are normal. IMPRESSION: No acute intracranial findings. Intraorbital air bubbles are noted with fracture of the anterior and lateral wall of the left maxilla ry sinus. Reviewed, dictated and finalized at location A. IMPRESSION: No acute intracranial findings. Intraorbital air bubbles are noted with fracture of the anterior and lateral wa ll of the left maxillary sinus.
--- NOTE | ~2024-07-30 | CT_ITS ---
EXAMINATION: 1. CT facial & cervical spine wo DATE: 07/30/2024 15:58 INDICATION: Left eye trauma and contusion post head injury TECHNIQUE: 1. Computed tomography (CT) of the maxillofacial region and of the cervical spine were performed with out intravenous contrast. Sagittal and coronal reconstructions of both regions were obtained. Automat ed exposure control and iterative reconstruction technique were employed. The dose-length product was 628.74 mGy-cm. COMPARISON: 10/09/2012 FINDINGS: Maxillofacial CT: Again seen is an old fracture deformity along the anterior wall of the left maxillary sinus. No defin itive acute fracture identified. There is however prominent left periorbital soft tissue gas the mercy rity preseptal however there are few foci of gas extending deeper into the left orbit. There is also some soft tissue gas or caudally in the left face along the anterior margin of the distal left tempor zina muscle. Bilateral globes appear intact. There is mild mucosal thickening in the left ethmoid and maxillary sinuses. Patient is now edentulous. Bilateral middle ear cavities and visualized portions of the mastoid air cells are clear. Cervical spine CT: There is reversal of the normal cervical lordosis. Mild upper thoracic levocurvature. Vertebral body heights are normal. No acute fracture. Moderate disc height loss with severe bilateral uncovertebral osteoarthritis at C3-C4 through C5-C6 and mild disc height loss with severe left-sided and moderate r ight-sided uncovertebral osteoarthritis at C6-C7. Disc bulges and posterior endplate osteophyte contr ibuting to minimal mild central canal stenosis at C3-C4 through C6-C7. Severe facet osteoarthritis on the left at C7-T1. Additional mild to moderate osteoarthritis at the remaining cervical facet joints . There is moderate neural foraminal stenosis bilaterally at C3-C4 through C6-C7 and mild neural from stenosis on the left at C7-T1. Cervical soft tissues are unremarkable. Mild emphysema the visualized upper lungs. No interval change since chest CT dated 12/21/2023 in a region of reticular, linear and groundglass opacities in the left upper lobe. IMPRESSION: 1. Unchanged old fracture along the anterior wall the left maxillary sinus. No evident acute maxillof acial fractures. There is however prominent left periorbital soft tissue gas primarily preseptal but with small amounts within the orbital fat. Correlate clinically for laceration as a potential etiolog y. Otherwise could not absolutely exclude an occult nonvisualized nondisplaced fracture of the abdomi nal wall. 2. Moderate cervical spondylosis. No acute osseous abnormality. Reviewed, dictated and finalized at location A. IMPRESSION: 1. Unchanged old fracture along the anterior wall the left maxillary sinus. No evident acute maxillofacial fractures. There is however prominent left periorbi juan m soft tissue gas primarily preseptal but with small amounts within the orbit al fat. Correlate clinically for laceration as a potential etiology. Otherwise could not absolutely exclude an occult nonvisualized nondisplaced fracture of t he abdominal wall. 2. Moderate cervical spondylosis. No acute osseous abnormality.
--- OUTSIDE RECORDS SUMMARY | 2024-07-30 16:24 | XMS_ITS | Clinical Summary ---
Author Organization [facility] Micheal rene [facility] Address [address] [place] [address] Care Team Providers Care Tugboat Pilot Name Role Phone Christopher Alfaro MD Primary Care Provider [phone] Allergies No known active allergies Medications sotaloL [...] 11:46 AM CDT Height 188 cm (6' 2) 06/30/2022 11:23 AM CDT Body Mass Index [...] INFLUENZA VACCINE (#1) 2023 Insurance MEDICAID [address] [place] [id number] [place] [address] MEDICAID Care Teams Tugboat Pilot Relationship Specialty Start Date End Date Christopher Alfaro MD [address] [place] [phone] PCP - General Internal Medicine 06/03/22
== END 2024-07-30 15:33 | disposition home or self-care (01) ==
LOC: CHSIMG 15:34
PROVIDERS: PCP Internal Medicine; Visit Provider Nurse Practitioner Family
DX: S05.12XA Contusion of eyeball and orbital tissues, left eye, initial encounter (principal); S09.90XA Unspecified injury of head, initial encounter; Z87.81 Personal history of (healed) traumatic fracture; M43.02 Spondylolysis, cervical region
CPT/HCPCS: 70450; 70486; 72125

== ENCOUNTER 2024-07-30 16:25 | Emergency (ER) | payer MEDICARE, MEDICAID, SELFPAY ==
[2024-07-30 16:25] VITALS: BP 162/85; PULSE 60; RESP 20; TEMP 37.4; O2SAT 95
--- NOTE | 2024-07-30 16:45 | ED_ITS ---
HPI - Head Injury General Chief complaint: Head Injury Stated complaint: facial fx , outpt xray Source: patient Mode of arrival: ambulatory Limitations: no limitations History of Present Illness HPI Narrative: 64 year old male is brought to the Emergency Department from Radiology at Primary Care Providers request. Patient had out patient CT of head and had findings of fracture of the anterior and lateral wall the the left maxillary sinus. Patient states he rolled out of bed last night and struck his face on night stand. No loss of consciousness. Has pain and swelling about the left orbital region. Denies any other injury. Denies visual changes. MD Complaint: head injury Onset (ago): hour(s) Mechanism of Injury: fall Place: home Loss of Consciousness: no Location of injury: other (left orbital) Severity: moderate Other Injuries: none Associated symptoms: denies other symptoms Related Data Home Medications ?Medication ?Instructions ?Recorded ?Confirmed ?Last Taken ?Type aspirin 325 mg tablet,delayed 325 mg PO DAILY 01/05/19 07/27/24 05/18/22 History release propylthiouracil 50 mg tablet 50 mg PO BID 05/29/21 07/27/24 Unknown History montelukast 10 mg tablet 10 mg PO HS 07/26/22 07/27/24 Unknown History torsemide 10 mg tablet 10 mg PO QAM 07/26/22 07/27/24 Unknown History ensifentrine 3 mg/2.5 mL 2.5 ml inhalation QAM AND QPM 02/10/24 07/27/24 Unknown History suspension for nebulization (Ohtuvayre) losartan 25 mg tablet 50 mg PO DAILY 04/12/24 07/27/24 Unknown History Allergies Allergy/AdvReac Type Severity Reaction Status Date / Time No Known Allergies Allergy Verified 07/27/24 11:32 Review of Systems Review of Systems: All systems reviewed & are unremarkable except as noted in HPI and below Constitutional: Constitutional: Reports as per HPI and Reports no additional constitutional complaints Eyes: Eyes: Reports as per HPI, Reports no additional eye complaints and Denies change in vision ENT: Reports system reviewed and no additional complaints, except as documented Cardiovascular: Cardiovascular: Reports as per HPI, Reports no additional cardiovascular complaints and Denies chest pain Respiratory: Respiratory: Reports as per HPI, Reports no additional respiratory complaints and Denies dyspnea Gastrointestinal: Gastrointestinal: Reports as per HPI, Reports no additional gastrointestinal complaints, Denies abdominal pain, Denies nausea and Denies vomiting Genitourinary: Genitourinary: Reports no additional male genitourinary complaints Musculoskeletal: Musculoskeletal: Reports no additional musculoskeletal complaints Integumentary/Breasts: Skin/Breast: Reports system reviewed and no additional complaints, except as docu Neurologic: Reports system reviewed and no additional complaints, except as documented Endocrine: Endocrine: Reports no additional endocrine complaints Hematologic/Lymphatic: Hematologic/Lymphatic: Reports no additional hematologic/lymphatic complaints Allergic/Immunologic: Allergic/Immunologic: Reports no additional allergic/immunologic complaints PMFSH Past Medical History Medical History Pulmonary nodules Fatigue Restless sleeper Swollen ankles Wheezing Cough Skin cancer Seasonal allergies Rhinitis SOB (shortness of breath) on exertion Arthritis of wrist, right, degenerative Traumatic arthritis of right ankle Bradycardia Chronic obstructive pulmonary disease KELLEY (dyspnea on exertion) Dizziness Hyperthyroidism Paroxysmal atrial flutter Severe tricuspid regurgitation Surgical History Surgical History H/O hernia repair Family History Family History Father , from aortic aneurysm Family history of rheumatoid arthritis Family history of emphysema Family history of thoracic aortic aneurysm Osteoarthritis COPD (chronic obstructive pulmonary disease) Aortic aneurysm Mother , from pneumonia Family history of osteoarthritis Family history of malignant neoplasm of ovary Lupus COPD (chronic obstructive pulmonary disease) Afib Non Hodgkin's lymphoma Osteoarthritis Social History Social History Smoking packs per day: 1 Smoking cigarettes per day: 20.0 Years smoked: 48 Smoking pack-years: 48.00 Smoking status: Current every day smoker Tobacco type: cigarettes Second hand tobacco smoke exposure: Yes Alcohol intake: current Drinks per week: 35 Alcohol use details: Frequent Do You Feel Safe in your Home?: Yes Lack of Transportation: No Lack of Food: Never True Current Housing: I Have Housing Concerned About Future Housing: YES Difficulty Paying Gas/Electric Bills: YES Difficulty Paying for Meds: No Currently Unemployed: No Education: Grade School Difficulty w/ Childcare or Family Care: No Spiritual care concerns: No Exam Const: General: no acute distress and alert Nutritional Appearance: well nourished Orientation/consciousness: patient oriented x3 Limitations: no limitations HENMT: Head: contusion (left periorbital) and hematoma (left orbital) Ears: external ears normal Face/Nose/Sinus: Normal external nose present Face and sinus: sinus tenderness (left maxillary) Mouth: Yes Normal oral and palatal mucosa present Throat: posterior oropharynx normal Eyes: Pupils: Equal, round and reactive pupils present EOM: EOMs intact bilaterally Direct Ophthalmoscopy: no photophobia Other: left eye swollen shut with periorbital swelling, contusion and ecchymosis. Conjunctival /scleral injection Neck: Neck: normal visual inspection Other: non-tender Chest: Chest palpation & inspection: normal inspection of the chest and no tenderness Resp: Effort & Inspection: normal respiratory effort Auscultation: clear to auscultation bilaterally Cardio: Rate: regular rate Rhythm: regular rhythm GI: Inspection: non-distended GI Palp: Yes Soft to palpation and No Tenderness to palpation present (GI) : General: Yes bladder normal to palpation Back/Spine/Pelvis: Back: no CVA tenderness Skin: General skin exam: normal color Rashes: no rashes Neuro: General: patient oriented x3, moves all extremities, no meningeal signs and no focal motor deficits Cranial nerves: Yes CN's II-XII intact bilaterally Speech: normal speech Extrem: General: normal to inspection Other: non-tender Psych: Mental Status: mental status grossly normal Course Course Emergency Course: 64 y/o male was brought to the ED from Radiology after OP CT head. Findings of left maxillary sinus fractures. PE: Left periorbital swelling, contusion and tenderness CT [OP] Head: intraorbital air bubbles with fracture of anterior and lateral wall left maxillary sinus CT [OP] Facial: old fx deformity along the anterior wall left max sinus. No definitive acute fx identified. Prominent left periorbital soft tissue gas, the majority preseptal. Bilateral globes intact. (1700) report given to [facility] at [facility]. Will call back. (1720) discussed with Dr. Elizalde ([facility]). appears fx's old, no need to f/u, can see PCP Rx and Instructions Vital Signs Vital signs: Vital Signs Temperature 37.4 C 07/30/24 16:25 Pulse Rate 60 07/30/24 16:25 Respiratory Rate 20 07/30/24 16:25 Blood Pressure 162/85 H 07/30/24 16:25 Pulse Oximetry 95 07/30/24 16:25 Oxygen Delivery Room Air 07/30/24 16:25 Temperature 37.4 C 07/30/24 16:25 Pulse Rate 60 07/30/24 16:25 Respiratory Rate 20 07/30/24 16:25 Blood Pressure 162/85 H 07/30/24 16:25 Pulse Oximetry 95 07/30/24 16:25 Oxygen Delivery Room Air 07/30/24 16:25 Discharge Plan Discharge Clinical Impression: Contusion of left orbit, Closed fracture of left maxillary sinus Patient Disposition: Home Condition: Stable Instructions: Antibiotic Form, Facial Contusion (ED) Additional Instructions: Take medications as prescribed Follow up Primary Care Provider in 2-3 days for re-evaluation Patient Language: Marshallese Prescriptions: New amoxicillin-pot clavulanate 875-125 mg tablet 1 tablet PO Q12H Qty: 20 0RF hydrocodone-acetaminophen 7.5-325 mg tablet 1 tablet PO Q6H PRN (Reason: pain) Qty: 20 0RF No Action montelukast 10 mg Tablet 10 mg PO HS torsemide 10 mg Tablet 10 mg PO QAM aspirin 325 mg tablet,delayed release (DR/EC) 325 mg PO DAILY propylthiouracil 50 mg tablet 50 mg PO BID Rx Instructions: one and a half every other day, half opposite days nicotine 21 mg/24 hr patch 24 hour 1 patch transdermal DAILY Qty: 28 0RF nicotine (polacrilex) 2 mg lozenge 2 mg buccal Q2-4H PRN (Reason: nicotine cravings) Qty: 108 0RF prednisone 10 mg tablet 10 mg PO DIRECTED Qty: 34 0RF Rx Instructions: Take 4 tablets by mouth daily for 4 days, then 3 tablets for 3 days, 2 tablets for 3 days, 1 tablet for 3 days amoxicillin-pot clavulanate 875-125 mg tablet 1 tablet PO BID 5 Days Qty: 10 0RF doxycycline hyclate 100 mg capsule 100 mg PO BID 5 Days Qty: 10 0RF (DME) nebulizer accessories Kit See Rx Instructions .Route Qty: 1 0RF Rx Instructions: As directed (DME) nebulizers Misc See Rx Instructions .Route Qty: 1 0RF Rx Instructions: As directed Ohtuvayre 3 mg/2.5 mL suspension for nebulization 2.5 ml inhalation QAM AND QPM losartan 25 mg tablet 50 mg PO DAILY sildenafil 100 mg tablet See Rx Instructions .ROUTE .COMPLEX Qty: 6 0RF Dose Instruction: TAKE ONE TABLET BY MOUTH DAILY NEEDED 30 MINUTES TO 4 HOURS PRIOR TO SEXUAL ACTIVITY DO NOT TAKE WITH NITROGLYCERIN Rx Instructions: TAKE ONE TABLET BY MOUTH DAILY NEEDED 30 MINUTES TO 4 HOURS PRIOR TO SEXUAL ACTIVITY DO NOT TAKE WITH NITROGLYCERIN sotalol 80 mg tablet See Rx Instructions .ROUTE .COMPLEX Qty: 180 2RF Dose Instruction: TAKE 1 TABLET BY MOUTH TWICE DAILY Rx Instructions: TAKE 1 TABLET BY MOUTH TWICE DAILY Breztri Aerosphere 160-9-4.8 mcg/actuation HFA aerosol inhaler See Rx Instructions .ROUTE .COMPLEX Qty: 10.7 5RF Dose Instruction: INHALE 2 PUFFS BY MOUTH EVERY MORNING AND EVERY EVENING. RINSE AND SPIT. REPLACES BEVESPI. Rx Instructions: INHALE 2 PUFFS BY MOUTH EVERY MORNING AND EVERY EVENING. RINSE AND SPIT. albuterol sulfate 90 mcg/actuation HFA aerosol inhaler 1 - 2 puff inhalation Q4-6H PRN (Reason: shortness of breath or wheezing) Qty: 8.5 5RF Follow-up/Referrals: Christopher Alfaro MD [Primary Care Provider] - Time of Disposition: 17:32
--- OUTSIDE RECORDS SUMMARY | 2024-07-30 16:46 | XMS_ITS | Clinical Summary ---
Author Organization [facility] Micheal rene [facility] Address [address] [place] [address] Care Team Providers Care Standards Engineer Name Role Phone Christopher Alfaro MD Primary Care Provider [phone] Allergies No known active allergies Medications sotaloL [...] VACCINE (#1) 2023 Insurance MEDICAID [address] [place] [id number] [place] [address] MEDICAID Care Teams Standards Engineer Relationship Specialty Start Date End Date Christopher Alfaro MD [address] [place] [phone] PCP - General Internal Medicine 06/03/22
--- NOTE | 2024-07-30 16:48 | PC.NURSE ---
ERP reviewed CT results w/ pt and POC to discuss and consult a facial or plastics for evaluation. Call placed to [facility] to see if they have anyone concrete boom pump operator.
[2024-07-30 17:08] VITALS: BP 139/77; PULSE 64; RESP 20; O2SAT 99
--- NOTE | 2024-07-30 17:23 | PC.NURSE ---
ERP spoke w/ plastics at [facility], POC discussed and findings discussed and pt informed on POC to d/c home and f/u w/ PCP, Instructed on ice, rest, and pain meds prescribed.
[2024-07-30] MEDS: HYDROcodone/acetaminophen (*CRX) 10-325 MG TABLET 1 TAB PO (17:27)
[2024-07-30 17:44] VITALS: BP 133/70; PULSE 68; RESP 18; O2SAT 98
== END 2024-07-30 17:44 | disposition home or self-care (01) ==
PROVIDERS: Emergency Provider Emergency Medicine; PCP Internal Medicine
DX: S02.40DA Maxillary fracture, left side, initial encounter for closed fracture (principal); S05.12XA Contusion of eyeball and orbital tissues, left eye, initial encounter; J44.9 Chronic obstructive pulmonary disease, unspecified; F17.210 Nicotine dependence, cigarettes, uncomplicated; W06.XXXA Fall from bed, initial encounter
CPT/HCPCS: 99283; A9270

== ENCOUNTER 2024-10-09 09:57 | Outpatient (CLI) | payer MEDICARE, MEDICAID, SELFPAY ==
[2024-10-09 10:20] VITALS: PULSE 46; O2SAT 95
[2024-10-09 10:23] VITALS: PULSE 68; O2SAT 88
--- OUTSIDE RECORDS SUMMARY | 2024-10-09 10:23 | XMS_ITS | Clinical Summary ---
Author Organization [facility] Micheal rene [facility] Address [address] [place] [address] Care Team Providers Care Stoker Installer Name Role Phone Christopher Alfaro MD Primary Care Provider [phone] Allergies No known active allergies Medications sotaloL [...] years 1-dose series) 2018 INFLUENZA VACCINE (#1) 2024 Insurance MEDICAID [address] [place] [id number] [place] [address] MEDICAID Care Teams Stoker Installer Relationship Specialty Start Date End Date Christopher Alfaro MD [address] [place] [phone] PCP - General Internal Medicine 06/03/22
[2024-10-09 10:25] VITALS: PULSE 63; O2SAT 88
[2024-10-09 10:28] VITALS: PULSE 68; O2SAT 92
== END 2024-10-09 09:58 | disposition home or self-care (01) ==
LOC: CHSCARD 09:59
PROVIDERS: PCP Internal Medicine; Visit Provider Nurse Practitioner Family
DX: R09.02 Hypoxemia (principal)
CPT/HCPCS: 94618

== ENCOUNTER 2024-10-29 10:22 | Outpatient (CLI) | payer MEDICARE, MEDICAID, SELFPAY ==
--- NOTE | ~2024-10-29 | XR_ITS ---
EXAMINATION: XR chest 2V 10/29/2024 10:50 INDICATION: Chest screening. PROCEDURE: 2 view chest COMPARISON: Comparison to multiple prior studies sequentially, with oldest reviewed study dated 07/13/2023. FINDINGS: The lungs are clear. The cardiomediastinal silhouette is within normal limits. There are no pleural effusions. There is no pneumothorax suspected. There are calcified mediastinal and hilar lymph nodes, consistent with chronic granulomatous disease. IMPRESSION: 1: NO ACUTE CARDIOPULMONARY DISEASE. Reviewed, dictated and finalized at location O.
[2024-10-29 10:42] LABS: Hematocrit 42.4 % (37.0-46.0); Hemoglobin 13.8 g/dL (12.4-15.3); Mean Corpuscular HGB Conc 32.5 g/dL (32-36); Mean Corpuscular Hemoglobin 33.9 pg (27.0-31.0); Mean Corpuscular Volume 104.2 fL (78.0-102.0); Platelet Count Result 224 K/mm3 (150-420); Red Blood Count 4.07 M/mm3 (4.70-6.10); White Blood Count 6.8 K/mm3 (4.8-10.8)
--- OUTSIDE RECORDS SUMMARY | 2024-10-29 10:46 | XMS_ITS | Clinical Summary ---
Author Organization [facility] Micheal rene [facility] Address [address] [place] [address] Care Team Providers Care Telesales Advisor Name Role Phone Christopher Alfaro MD Primary Care Provider [phone] Allergies No known active allergies Medications sotaloL [...] INFLUENZA VACCINE (#1) 2024 Insurance MEDICAID [address] [place] [id number] [place] [address] MEDICAID Care Teams Telesales Advisor Relationship Specialty Start Date End Date Christopher Alfaro MD [address] [place] [phone] PCP - General Internal Medicine 06/03/22
[2024-10-29 10:48] LABS: Add Urine Microscopic? NO; Appearance Urine Clear (Clear); Glucose Urine UA Negative (Negative); Leukocyte Esterase Ur Negative (Negative); Nitrate Urine Negative (Negative); Specific Grav Ur 1.020 (1.010-1.020)
[2024-10-29 11:12] LABS: Alanine Aminotransferase 35 U/L (6-50); Albumin Level 4.1 g/dL (3.5-5.1); Alkaline Phosphatase 103 U/L (38-126); Anion Gap 7 mmol/L (4-12); Aspartate Amino Transferase 51 U/L (17-59); Bilirubin,Total 0.5 mg/dL (0.2-1.3); Blood Urea Nitrogen 8 mg/dL (9-20); Calcium 9.6 mg/dL (8.4-10.2); Carbon Dioxide 37 mmol/L (22-30); Chloride 95 mmol/L (98-107); Cholesterol 171 mg/dL (0-200); Estimated Glomerular Filt Rate > 60; Glucose 103 mg/dL (65-110); HDL Direct 93 mg/dL; Osmolality Calculated 286 mOsm/kg (285-295); Potassium 5.9 mmol/L (3.4-5.0); Sodium 139 mmol/L (137-145); Total Protein 7.5 g/dL (6.3-8.2); Triglycerides 59 mg/dL (<150)
[2024-10-29 11:21] LABS: NT Pro B Type Natriuretic Pept 490 pg/mL (19.9-100)
[2024-10-29 11:29] LABS: Free T4 Free Thyroxine 0.99 ng/dL (0.78-2.19)
[2024-10-29 11:42] LABS: Thyroid Stimulating Hormone 1.320 uIU/mL (0.465-4.680)
== END 2024-10-29 10:23 | disposition home or self-care (01) ==
LOC: CHSIMG 10:25
PROVIDERS: PCP Internal Medicine; Visit Provider Nurse Practitioner Family
DX: J44.1 Chronic obstructive pulmonary disease with (acute) exacerbation (principal); E05.80 Other thyrotoxicosis without thyrotoxic crisis or storm; Z87.891 Personal history of nicotine dependence; Z71.6 Tobacco abuse counseling; I10 Essential (primary) hypertension; Z68.28 Body mass index [BMI] 28.0-28.9, adult; Z12.2 Encounter for screening for malignant neoplasm of respiratory organs
CPT/HCPCS: 36415; 71046; 80053; 80061; 81003; 83880; 84439; 84443; 85027

== ENCOUNTER 2024-11-02 13:21 | Outpatient (CLI) | payer MEDICARE, MEDICAID, SELFPAY ==
--- OUTSIDE RECORDS SUMMARY | 2024-11-02 14:10 | XMS_ITS | Clinical Summary ---
Author Organization [facility] Micheal rene [facility] Address [address] [place] [address] Care Team Providers Care Parts Department Manager Name Role Phone Christopher Alfaro MD Primary Care Provider Allergies No known active allergies Medications sotaloL [...] INFLUENZA VACCINE (#1) 2024 Insurance MEDICAID [address] [place] [id number] [place] [address] MEDICAID Care Teams Parts Department Manager Relationship Specialty Start Date End Date Christopher Alfaro MD [address] [place] [id number] PCP - General Internal Medicine 06/03/22
[2024-11-02 14:21] LABS: Alanine Aminotransferase 43 U/L (6-50); Albumin Level 4.2 g/dL (3.5-5.1); Alkaline Phosphatase 59 U/L (38-126); Anion Gap 10 mmol/L (4-12); Aspartate Amino Transferase 68 U/L (17-59); Bilirubin,Total 1.1 mg/dL (0.2-1.3); Blood Urea Nitrogen 9 mg/dL (9-20); Calcium 9.4 mg/dL (8.4-10.2); Carbon Dioxide 32 mmol/L (22-30); Chloride 90 mmol/L (98-107); Estimated Glomerular Filt Rate > 60; Glucose 103 mg/dL (65-110); Osmolality Calculated 272 mOsm/kg (285-295); Potassium 4.9 mmol/L (3.4-5.0); Sodium 132 mmol/L (137-145); Total Protein 7.5 g/dL (6.3-8.2)
[2024-11-02 14:29] LABS: NT Pro B Type Natriuretic Pept 1100 pg/mL (19.9-100)
== END 2024-11-02 13:22 | disposition home or self-care (01) ==
LOC: CHSLAB 13:23
PROVIDERS: PCP Internal Medicine; Visit Provider Nurse Practitioner Family
DX: I11.0 Hypertensive heart disease with heart failure (principal); I50.32 Chronic diastolic (congestive) heart failure; E87.5 Hyperkalemia; F10.10 Alcohol abuse, uncomplicated; E78.5 Hyperlipidemia, unspecified; I48.92 Unspecified atrial flutter; E05.80 Other thyrotoxicosis without thyrotoxic crisis or storm
CPT/HCPCS: 36415; 80053; 83880

== ENCOUNTER 2024-11-08 09:21 | Outpatient (CLI) | payer MEDICARE, MEDICAID, SELFPAY ==
--- OUTSIDE RECORDS SUMMARY | 2024-11-08 09:50 | XMS_ITS | Clinical Summary ---
Author Organization [facility] Micheal rene [facility] Address [address] [place] [address] Care Team Providers Care Manager Sourcing Name Role Phone Christopher Alfaro MD Primary Care Provider [phone] Allergies No known active allergies Medications sotaloL [...] INFLUENZA VACCINE (#1) 2024 Insurance MEDICAID [address] [place] [id number] [place] [address] MEDICAID Care Teams Manager Sourcing Relationship Specialty Start Date End Date Christopher Alfaro MD [address] [place] [id number] PCP - General Internal Medicine 06/03/22
[2024-11-08 10:31] LABS: Alanine Aminotransferase 36 U/L (6-50); Albumin Level 4.0 g/dL (3.5-5.1); Alkaline Phosphatase 85 U/L (38-126); Anion Gap 11 mmol/L (4-12); Aspartate Amino Transferase 42 U/L (17-59); Bilirubin,Total 0.4 mg/dL (0.2-1.3); Blood Urea Nitrogen 6 mg/dL (9-20); Calcium 9.3 mg/dL (8.4-10.2); Carbon Dioxide 34 mmol/L (22-30); Chloride 91 mmol/L (98-107); Estimated Glomerular Filt Rate > 60; Glucose 77 mg/dL (65-110); Osmolality Calculated 278 mOsm/kg (285-295); Potassium 4.0 mmol/L (3.4-5.0); Sodium 136 mmol/L (137-145); Total Protein 7.6 g/dL (6.3-8.2)
[2024-11-08 10:38] LABS: NT Pro B Type Natriuretic Pept 227 pg/mL (19.9-100)
== END 2024-11-08 09:22 | disposition home or self-care (01) ==
LOC: CHSLAB 09:24
PROVIDERS: PCP Internal Medicine; Visit Provider Nurse Practitioner Family
DX: I50.32 Chronic diastolic (congestive) heart failure (principal); F10.10 Alcohol abuse, uncomplicated; E87.5 Hyperkalemia
CPT/HCPCS: 36415; 80053; 83880

== ENCOUNTER 2024-11-22 09:01 | Outpatient (CLI) | payer MEDICARE, MEDICAID, SELFPAY ==
--- OUTSIDE RECORDS SUMMARY | 2024-11-22 09:28 | XMS_ITS | Clinical Summary ---
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
[2024-11-22 10:14] LABS: Alanine Aminotransferase 21 U/L (6-50); Albumin Level 3.8 g/dL (3.5-5.1); Alkaline Phosphatase 73 U/L (38-126); Anion Gap 9 mmol/L (4-12); Aspartate Amino Transferase 26 U/L (17-59); Bilirubin,Total 0.7 mg/dL (0.2-1.3); Blood Urea Nitrogen 5 mg/dL (9-20); Calcium 9.4 mg/dL (8.4-10.2); Carbon Dioxide 35 mmol/L (22-30); Chloride 93 mmol/L (98-107); Estimated Glomerular Filt Rate > 60; Glucose 89 mg/dL (65-110); Osmolality Calculated 280 mOsm/kg (285-295); Potassium 4.2 mmol/L (3.4-5.0); Sodium 137 mmol/L (137-145); Total Protein 7.5 g/dL (6.3-8.2)
[2024-11-22 10:20] LABS: NT Pro B Type Natriuretic Pept 865 pg/mL (19.9-100)
== END 2024-11-22 09:02 | disposition home or self-care (01) ==
PROVIDERS: PCP Internal Medicine; Visit Provider Nurse Practitioner Family
DX: I50.32 Chronic diastolic (congestive) heart failure (principal); F10.10 Alcohol abuse, uncomplicated
CPT/HCPCS: 36415; 80053; 83880